=== PATIENT | female | born 1980 | race Caucasian/White ===

== ENCOUNTER 2020-03-25 22:16 | Emergency (ER) | payer OTHER, SELFPAY ==
--- NOTE | 2020-03-25 22:28 | ED.GENADULT ---
HPI - General Adult General Chief complaint: Urogenital-Female Stated complaint: CLOUDY URINE Time Seen by Provider: 03/25/20 22:26 Source: patient Mode of arrival: Ambulatory Limitations: no limitations History of Present Illness HPI narrative: Patient is a 39-year-old female here for evaluation of multiple symptoms. She states that she has dark cloudy urine which makes her think that she is dehydrated. She thinks that this is going to cause issues with her lithium level. 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 She is also complaining of vaginal discharge. She thinks this is either because she just changed her NuvaRing or because she changed her cat litter did not wash her hands before she went to bed thought that maybe she infected herself. She has no concern for sexually transmitted diseases. States the vaginal discharge is clear in nature. Related Data Allergies Allergy/AdvReac Type Severity Reaction Status Date / Time No Known Drug Allergies Allergy Verified 03/25/20 22:45 Review of Systems Constitutional Constitutional: Reports fatigue and Denies fever(s) Cardiovascular Cardiovascular: Denies chest pain and Denies dyspnea Respiratory Respiratory: Denies dyspnea Gastrointestinal Gastrointestinal: Reports abdominal pain (Lower abdomen), Denies nausea and Denies vomiting Genitourinary Genitourinary: Reports vaginal discharge Comments: Dark urine Musculoskeletal Musculoskeletal: Denies arthralgias and Denies myalgias Integumentary/Breasts Skin/Breast: Denies lesions and Denies rash Neurologic Neurologic: Denies behavioral changes Psychiatric Psychiatric: Denies behavioral changes Endocrine Endocrine: Reports fatigue Hematologic/Lymphatic Hematologic/Lymphatic: Denies easy bleeding and Denies easy bruising Allergic/Immunologic Allergic/Immunologic: Denies urticaria Patient History Surgical History No pertinent past surgical history Social History lives independently: Yes Exam Initial Vital Signs Initial Vital Signs: Vital Signs Temperature 97.8 F 03/25/20 22:35 Pulse Rate 107 H 03/25/20 22:35 Respiratory Rate 16 03/25/20 22:35 Blood Pressure 118/74 03/25/20 22:35 Pulse Oximetry 97 03/25/20 22:35 Const General: cooperative and comfortable Resp Effort & Inspection: normal respiratory effort Cardio Rate: regular rate External Female Exam: normal external appearance Speculum Exam - Vagina: normal appearance of the vagina, normal vaginal discharge and no lesions Skin Lesions: no lesions Rashes: no rashes Neuro General: patient alert and patient awake Extrem General: capillary refill normal Psych Appearance: grossly normal and well kempt Course Orders Ordered: ED Orders 03/25/20 22:52 Basic Metabolic Panel Stat Complete Blood Count AUTO DIFF Stat [place] Stat 03/26/20 00:04 ARNULFO Prep Stat Wet Prep Tric BV [place] Stat Discontinued Medications Influenza Virus Vaccine (Influenza Vaccine 0.5 Ml Syringe) 0.5 ml IM .ONCE ONE Stop: 03/25/20 22:39 Last Admin: 03/25/20 22:46 Dose: 0.5 ml Documented by: RUI Vital Signs Vital signs: Vital Signs - 8 hr 03/25/20 22:35 03/26/20 00:56 Temperature 97.8 F Pulse Rate 107 H 96 H Respiratory Rate 16 16 Blood Pressure 118/74 124/75 Pulse Oximetry 97 99 Medical Decision Making Lab Data Lab results reviewed: Yes I reviewed the patient's lab results. Result diagrams: 03/25/20 22:52 03/25/20 22:52 Labs: Lab Results 03/25/20 03/25/20 03/25/20 Range/Units 22:52 22:52 22:52 WBC 11.9 H (4.5-11.0) X10^3/uL RBC 4.39 (4.0-5.2) X10^6/uL Hgb 12.5 (12.0-16.0) g/dL Hct 38.3 (36-46) % MCV 87.3 (80-100) fL MCH 28.4 (26-34) PG MCHC 32.6 (30-36) % RDW 12.9 (11.6-14.8) % Plt Count 306 (150-400) X10^3/uL Neut % (Auto) 63.4 (50-75) % Lymph % (Auto) 26.0 (25-40) % [place] % (Auto) 7.2 (3-14) % Eos % (Auto) 2.8 (2-4) % Baso % (Auto) 0.6 (0-2) % Neut # (Auto) 7600 H (4167-9941) /uL Lymph # (Auto) 3100 (7421-4522) /uL [place] # (Auto) 900 (0-900) /uL Eos # (Auto) 300 (0-450) /uL Baso # (Auto) 100 (0-100) /uL Sodium 137 (137-145) mmol/L Potassium 3.7 (3.4-5.1) mmol/L Chloride 107 (98-107) mmol/L Carbon Dioxide 24 (22-32) mmol/L BUN 13 (7-17) mg/dL Creatinine 0.77 (0.52-1.04) mg/dL Estimated GFR > 60.0 (>60) mL/min BUN/Creatinine Ratio 16.9 (6-22) Glucose 122 H (70-100) mg/dL Calcium 9.4 (8.4-10.2) mg/dL [place] 0.6 (0.6-1.2) mmol/L Point of Care Testing Test Results Negative Urine Dip Bedside Urine Glucose Negative Bedside Urine Bilirubin - Negative Bedside Urine Ketone - Negative Urine Specific [place] 1.030 Bedside Urine Occult Blood - Negative Bedside Urine pH 6.0 Bedside Urine Protein - Negative Bedside Urine Urobilinogen - Negative Bedside Urine Nitrite - Negative Bedside Urine Leukocytes - Negative Esterase Point of care testing: Point of Care Testing Test Results Negative Urine Dip Bedside Urine Glucose Negative Bedside Urine Bilirubin - Negative Bedside Urine Ketone - Negative Urine Specific [place] 1.030 Bedside Urine Occult Blood - Negative Bedside Urine pH 6.0 Bedside Urine Protein - Negative Bedside Urine Urobilinogen - Negative Bedside Urine Nitrite - Negative Bedside Urine Leukocytes - Negative Esterase MDM Narrative Medical decision making narrative: Vaginal exam was performed with nursing bed sign. There is no signs of infection both in her urine or on the vaginal cultures. Her lithium level was at the lower limit of normal however it has been approximately 24 hours since she is taking her medication. Patient tolerating oral intake. Informed her that she needed to continue to drink fluids at home. No indication for antibiotics. No indication for further workup here in the ER. Discharge Plan Departure Patient Disposition: Home Clinical Impression: Vaginal discharge Instructions: DI for Vaginal Discharge Activity Restrictions/Additional Instructions: There were no signs of any infections on your labs today. There is also no indication of dehydration. Recommend that you take all of your medications as directed. Contact her primary provider for follow-up. Return to the emergency department for any new or worsening symptoms
[2020-03-25 22:35] VITALS: BP 118/74; PULSE 107; RESP 16; TEMP 36.6; O2SAT 97; BMI 34.7
[2020-03-25] MEDS: INFLUENZA VACCINE 0.5 ML SYRINGE IM (22:46)
[2020-03-25 23:04] LABS: Add Manual Diff / Slide Review NO; Basophils Absolute Auto 100 /uL (0-100); Basophils Percent Auto 0.6 % (0-2); Eosinophils Absolute Auto 300 /uL (0-450); Eosinophils Percent Auto 2.8 % (2-4); Hematocrit 38.3 % (36-46); Hemoglobin 12.5 g/dL (12.0-16.0); Lymphocytes Absolute Auto 3100 /uL (1100-4500); Mean Corpuscular HGB Conc 32.6 % (30-36); Mean Corpuscular Hemoglobin 28.4 PG (26-34); Mean Corpuscular Volume 87.3 fL (80-100); Monocytes Absolute Auto 900 /uL (0-900); Monocytes Percent Auto 7.2 % (3-14); Neutrophils Absolute Auto 7600 /uL (1500-7000); Neutrophils Percent Auto 63.4 % (50-75); Platelet Count 306 X10^3/uL (150-400); Red Blood Cell Count 4.39 X10^6/uL (4.0-5.2); Red Cell Distribution Width 12.9 % (11.6-14.8); White Blood Cell Count 11.9 X10^3/uL (4.5-11.0)
[2020-03-25 23:09] LABS: BUN Creatinine Ratio 16.9 (6-22); Blood Urea Nitrogen 13 mg/dL (7-17); Calcium 9.4 mg/dL (8.4-10.2); Carbon Dioxide 24 mmol/L (22-32); Chloride 107 mmol/L (98-107); Estimated Glomerular Filt Rate > 60.0 mL/min (>60); Glucose 122 mg/dL (70-100); HEMOLYSIS < 15 (0-50); Potassium 3.7 mmol/L (3.4-5.1); Sodium 137 mmol/L (137-145)
[2020-03-25 23:24] LABS: Lithium 0.6 mmol/L (0.6-1.2)
[2020-03-26 00:56] VITALS: BP 124/75; PULSE 96; RESP 16; O2SAT 99
== END 2020-03-26 00:56 | disposition home or self-care (01) ==
PROVIDERS: Emergency Provider Emergency Medicine
DX: N89.8 Other specified noninflammatory disorders of vagina (principal); R10.30 Lower abdominal pain, unspecified; Z23 Encounter for immunization
CPT/HCPCS: 36415; 80048; 80178; 81003; 81025; 85025; 87210; 87220; 90471; 90656; 99283; 99284; Q2038

== ENCOUNTER → 2021-06-07 11:42 | Outpatient (CLI) | payer OTHER, SELFPAY ==
[2021-06-07 15:23] LABS: Urine N gonorrhoeae NOT DETECTED
[2021-06-07 15:48] LABS: Urine Chlamydia NOT DETECTED
[2021-06-08 06:36] LABS: RPR Screen Non Reactive (Non Reactive)
[2021-06-08 11:41] LABS: HSV 2 IGG AB < 0.91 index (0.00-0.90); HSV1IGG < 0.91 index (0.00-0.90)
[2021-06-09 01:09] LABS: Hepatitis B Core AB w/Reflex Negative (Negative)
[2021-06-09 15:33] LABS: Hepatitis B Surface Antigen NEGATIVE s/c (NEGATIVE)
[2021-06-09 15:50] LABS: HIV 1 & 2 Ab/Ag 4th Gen Combo NEGATIVE (NEGATIVE); Hep C Virus Ab w/Reflex Quant NEGATIVE s/c (NEGATIVE)
== END ==
PROVIDERS: PCP Registered Nurse Diabetes Educator; Referring Provider Registered Nurse Diabetes Educator; Visit Provider Registered Nurse Diabetes Educator
DX: Z72.51 High risk heterosexual behavior (principal)
CPT/HCPCS: 36415; 86592; 86695; 86696; 86704; 86803; 87340; 87389; 87491; 87591

== ENCOUNTER → 2021-06-21 10:10 | Outpatient (CLI) | payer OTHER, SELFPAY ==
[2021-06-21 10:43] LABS: Hematocrit 38.5 % (36-46); Mean Corpuscular HGB Conc 33.8 % (30-36); Mean Corpuscular Hemoglobin 29.2 PG (26-34); Mean Corpuscular Volume 86.4 fL (80-100); Platelet Count 262 X10^3/uL (150-400); Red Blood Cell Count 4.45 X10^6/uL (4.0-5.2); Red Cell Distribution Width 13.3 % (11.6-14.8); White Blood Cell Count 9.8 X10^3/uL (4.5-11.0)
[2021-06-21 11:18] LABS: Alanine Aminotransferase 19 IU/L (<35); Albumin 4.1 g/dL (3.5-5.0); Albumin Globulin Ratio 1.5 (1.0-2.8); Alkaline Phosphatase 71 U/L (38-126); Aspartate Aminotransferase 19 IU/L (14-36); BUN Creatinine Ratio 15.2 (6-22); Bilirubin Total 0.3 mg/dL (0.2-1.3); Blood Urea Nitrogen 12 mg/dL (7-17); Calcium 9.5 mg/dL (8.4-10.2); Carbon Dioxide 20 mmol/L (22-32); Chloride 112 mmol/L (98-107); Cholesterol 212 mg/dL (140-199); Estimated Glomerular Filt Rate > 60.0 mL/min (>60); Globulin 2.7 g/dL (1.7-4.1); Glucose 103 mg/dL (70-100); HDL Cholesterol 70 mg/dL (40-60); HEMOLYSIS < 15 (0-50); LDL Cholesterol Calculated 93 mg/dL (<100); Potassium 4.2 mmol/L (3.4-5.1); Sodium 139 mmol/L (137-145); Total Protein 6.8 g/dL (6.3-8.2); Triglycerides 246 mg/dL (35-150)
[2021-06-21 12:17] LABS: TSH w/ Reflex to FT4 2.84 uIU/mL (0.47-4.68)
== END ==
PROVIDERS: PCP Registered Nurse Diabetes Educator; Referring Provider Registered Nurse Diabetes Educator; Visit Provider Registered Nurse Diabetes Educator
DX: R23.2 Flushing (principal); Z00.00 Encounter for general adult medical examination without abnormal findings; Z68.35 Body mass index [BMI] 35.0-35.9, adult
CPT/HCPCS: 36415; 80053; 80061; 84443; 85027

== ENCOUNTER → 2021-07-21 11:18 | Outpatient (CLI) | payer OTHER, SELFPAY ==
[2021-07-21 12:56] LABS: Lithium 0.9 mmol/L (0.6-1.2)
[2021-07-21 12:58] LABS: BUN Creatinine Ratio 10.7 (6-22); Blood Urea Nitrogen 9 mg/dL (7-17); Calcium 9.7 mg/dL (8.4-10.2); Carbon Dioxide 22 mmol/L (22-32); Chloride 107 mmol/L (98-107); Estimated Glomerular Filt Rate > 60.0 mL/min (>60); Glucose 93 mg/dL (70-100); HEMOLYSIS < 15 (0-50); Potassium 4.1 mmol/L (3.4-5.1); Sodium 138 mmol/L (137-145)
== END ==
PROVIDERS: PCP Registered Nurse Diabetes Educator; Referring Provider Psychiatry & Neurology Psychiatry; Visit Provider Psychiatry & Neurology Psychiatry
DX: G47.00 Insomnia, unspecified (principal); F31.9 Bipolar disorder, unspecified; F90.9 Attention-deficit hyperactivity disorder, unspecified type; F43.10 Post-traumatic stress disorder, unspecified; E78.5 Hyperlipidemia, unspecified
CPT/HCPCS: 36415; 80048; 80178

== ENCOUNTER → 2021-07-22 11:55 | Outpatient (CLI) | payer OTHER, SELFPAY ==
--- NOTE | 2021-07-22 11:57 | DI.RAD.S_ITS ---
PROCEDURE: XR BONE LENGTH SCANOGRAM INDICATIONS: eval for asymmetry; apparent leg length discrepancy TECHNIQUE: A single frontal standing view of both lower extremities acquired, with measuring ruler situated between the legs. COMPARISON: None. FINDINGS: Note is made of [id number] bilateral knee joint degeneration. Right: Total leg length is roughly 77 cm. Left: Total leg length is roughly 77 cm. IMPRESSION: Leg length roughly 77 cm bilaterally. Dictated by: Bravo Medina RR Interpreted: Darryl Crouch MD on 07/22/2021 at 16:29 Transcribed by: GLENNA on 07/22/2021 at 16:31 Approved by: Darryl Crouch M.D. on 07/22/2021 at 18:06
== END ==
PROVIDERS: PCP Registered Nurse Diabetes Educator; Referring Provider Registered Nurse Diabetes Educator; Visit Provider Registered Nurse Diabetes Educator
DX: M21.70 Unequal limb length (acquired), unspecified site (principal); M17.0 Bilateral primary osteoarthritis of knee
CPT/HCPCS: 77073

== ENCOUNTER → 2021-08-01 16:35 | Outpatient (CLI) | payer OTHER, SELFPAY ==
--- NOTE | 2021-08-01 16:36 | DI.RAD.S_ITS ---
PROCEDURE: XR HIP W PEL IF DONE KARMEN MIN 4V INDICATIONS: eval possible hip asymmetry TECHNIQUE: AP pelvis with lateral view(s) of the right and left hip(s). COMPARISON: None. FINDINGS: Bones: No fractures or dislocations. Pelvic ring appears intact. No suspicious bony lesions. Mild symmetric hip joint degeneration bilaterally. Soft tissues: The visualized bowel gas pattern is normal. No suspicious soft tissue calcifications. IMPRESSION: Mild symmetric degenerative joint disease. Dictated by: Darryl Crouch M.D. on 08/01/2021 at 17:06 Approved by: Darryl Crouch M.D. on 08/01/2021 at 17:07
== END ==
PROVIDERS: PCP Registered Nurse Diabetes Educator; Referring Provider Registered Nurse Diabetes Educator; Visit Provider Registered Nurse Diabetes Educator
DX: M16.0 Bilateral primary osteoarthritis of hip (principal); M21.70 Unequal limb length (acquired), unspecified site
CPT/HCPCS: 73522

== ENCOUNTER 2021-11-23 01:37 | Emergency (ER) | payer OTHER, SELFPAY ==
[2021-11-23 01:44] VITALS: O2SAT 97
[2021-11-23 01:45] VITALS: BP 118/78; PULSE 91; RESP 20; TEMP 36.9; O2SAT 97; BMI 34.5
--- NOTE | 2021-11-23 02:19 | ED_ITS ---
HPI - General Adult General Chief complaint: Urogenital-Female Stated complaint: Trichomoniasis/diarrhea/vag. discharge Time Seen by Provider: 11/23/21 02:06 Source: patient Mode of arrival: Ambulatory History of Present Illness HPI narrative: 41-year-old woman with history of bipolar disorder presents with vaginal discharge mild discomfort and concerns. She did have a partnered sexual encounter in July but used a condom has not had a partners since that time. Symptoms have been increasing over the last week or so. She is concerned that her irritable bowel syndrome causing increased diarrhea is part of the reason she is having vaginal symptoms. She noted that her Estring partially extruded and she simply replaced and is concerned that she introduced fecal contamination into her vagina. She is having minor lower abdominal cramping and minor dysuria. No gross hematuria. Is not complaining of fevers, flank pain, vomiting. Notes that she has recently been , moved to the [facility], settling into a new home, increasing stressors and increasing irritable bowel syndrome symptoms accordingly Related Data Home Medications Medication Instructions Recorded Confirmed acetaminophen [Tylenol] PO 09/17/20 08/05/21 aripiprazole 5 mg tablet (Abilify) 10 mg PO DAILY 09/17/20 08/05/21 cetirizine 10 mg capsule (All Day 10 mg PO DAILY PRN 09/17/20 08/05/21 Allergy (cetirizine)) etonogestrel 0.12 mg-ethinyl 1 vag ring vaginal Q4W 09/17/20 08/05/21 estradiol 0.015 mg/24 hr vaginal ring (EluRyng) lamotrigine 200 mg tablet 400 mg PO DAILY 09/17/20 08/05/21 lithium carbonate 600 mg capsule 1,200 mg PO BEDTIME 09/17/20 08/05/21 methylphenidate HCl 18 mg 18 mg PO DAILY 09/17/20 08/05/21 tablet,extended release 24 hr (Concerta) pntcyiwzgdjm-Gh-mohs-minerals 18 tab PO 09/17/20 08/05/21 mg-0.4 mg tablet (Maximum Daily Multivitamin) nortriptyline 10 mg capsule 10 mg PO TID 09/17/20 08/05/21 risperidone 0.5 mg tablet 0.5 mg PO BEDTIME 09/17/20 08/05/21 Previous Rx's Medication Instructions Recorded montelukast 10 mg tablet See Rx Instructions .Route 03/28/21 .COMPLEX #90 tabs zolmitriptan 5 mg tablet (Zomig) See Rx Instructions PO .COMPLEX 04/30/21 #30 tabs dicyclomine 20 mg tablet 20 mg PO QID PRN abdominal pain 05/28/21 #120 tabs metronidazole 0.75 % topical gel 1 applic topical BID Rosacea #45 11/04/21 grams rizatriptan 10 mg tablet 10 mg PO .COMPLEX PRN migraine 11/06/21 headache #30 tabs cephalexin 500 mg capsule 500 mg PO TID #15 caps 11/23/21 metronidazole 500 mg tablet 500 mg PO BID #14 tabs 11/23/21 Allergies Allergy/AdvReac Type Severity Reaction Status Date / Time No Known Drug Allergies Allergy Verified 08/05/21 08:44 Review of Systems Review of Systems Narrative: Remainder of complete review of systems is otherwise unremarkable except for that included in the HPI. Patient History Medical History Acquired short leg syndrome on left Acute right-sided thoracic back pain Bipolar disorder Chronic right-sided low back pain without sciatica Dyslipidemia IBS (irritable bowel syndrome) Lumbar region somatic dysfunction Migraines Osteopenia Pelvic somatic dysfunction Sacral region somatic dysfunction Segmental and somatic dysfunction of abdomen and other regions Somatic dysfunction of lower extremity Thoracic region somatic dysfunction Urinary Incontinence Surgical History No pertinent past surgical history Social History lives independently: Yes Smoking Status: Never smoker Smoking Status: Never smoker Substance Use Type: does not use Exam Initial Vital Signs Initial Vital Signs: Vital Signs Temperature 98.4 F 11/23/21 01:45 Pulse Rate 91 H 11/23/21 01:45 Respiratory Rate 20 11/23/21 01:45 Blood Pressure 118/78 11/23/21 01:45 Pulse Oximetry 97 11/23/21 01:45 Oxygen Delivery Method 11/23/21 01:45 General: Alert appropriate in no acute distress Respiratory: Able to speak in full sentences, no obvious respiratory distress Abdomen: Mild suprapubic tenderness, no flank pain no rebound or guarding Skin: No obvious rashes, warm and dry Neurologic: Grossly intact no obvious asymmetries or abnormalities Psych: appropriate insight and affect, cooperative Pelvic exam: Or mildly excoriated vaginal mucosa with thin white vaginal discharge that does not have a significant odor. Cervix covered with discharge but cervical mucosal air is unremarkable. She has no cervical motion tenderne ss. Course Orders Ordered: ED Orders 11/23/21 02:20 Chlamydia Gonorrhea PCR -URINE Stat UA dip and micro [Urinalysis and Microscopic] Stat Urine Culture Stat 11/23/21 02:40 Wet Prep Tric BV [place] Stat Vital Signs Vital signs: Vital Signs - 8 hr 11/23/21 01:45 Temperature 98.4 F Pulse Rate 91 H Respiratory Rate 20 Blood Pressure 118/78 Pulse Oximetry 97 Oxygen Delivery Method Room Air Medical Decision Making Lab Data Labs: Lab Results 11/23/21 Range/Units 02:20 Urine Color Yellow Urine Appearance Clear Urine pH 7.0 (4.5-8.0) Ur Specific [place] 1.015 (1.000-1.035) Urine Protein Negative (Negative) Urine Glucose (UA) Negative (Negative) g/dL Urine Ketones Negative (NEGATIVE) Urine Occult Blood Negative (Negative) Urine Nitrate Negative (Negative) Urine Bilirubin Negative (NEGATIVE) Urine Urobilinogen 0.2 (0.2) E.U./dL Ur Leukocyte Esterase Trace H (NEGATIVE) Urine RBC None seen (0-5/HPF) Urine WBC None seen (0-5/HPF) Urine Bacteria None seen (None) Ur Culture Indicated? Specimen cultured MDM Narrative Medical decision making narrative: 41-year-old woman with 1 week of increasing vaginal discharge minor irritation cramping and mild dysuria. Wet mount suggests that she has bacterial vaginosis in urinalysis rinse suggests developing UTI. Urine sample was also sent for gonorrhea and chlamydia. A suspicion for sexually transmitted infection is low. Will treat her with 1 week of metronidazole 500 mg b.i.d. and 5 days of Keflex t.i.d.. She is on high doses of lithium and there is a potential side effect with lithium and metronidazole of which she is cautioned. She has had lithium toxicity and is aware of symptoms to watch for. Should she develop those symptoms I suggested she discontinue the metronidazole. There is no evidence of vaginal yeast nor pelvic inflammatory disease. All questions are answered and she is safe for home discharge Discharge Plan Departure Patient Disposition: Home Clinical Impression: Bacterial vaginal infection UTI (urinary tract infection) Qualifiers: Urinary tract infection type: acute cystitis Hematuria presence: without hematuria Qualified Code(s): N30.00 - Acute cystitis without hematuria Instructions: DI for Urinary Tract Infection (UTI), DI for Bacterial Vaginosis Activity Restrictions/Additional Instructions: Thank you for coming in today You have bacterial vaginosis as well as a bladder infection. I did check for both gonorrhea and chlamydia and should that test returned positive we will give you a call to let you know which antibiotics will be required. In the meantime, I am going to put you on metronidazole 500 mg twice a day for 7 days for the bacterial vaginosis. For the urinary tract infection I am going to give you Keflex 500 mg 3 times a day for 5 days. [place] and metronidazole taken together for extended period of time can interact and cause lithium toxicity. I believe that only 7 days and fairly low dose of metronidazole are safe but I do want you to be aware of the potential interaction. If you are noticing any signs of lithium toxicity(tremor, agitation increased anxiety sleeplessness) please stop the metronidazole. Prescriptions have been electronically transmitted to [facility]. If you find that you have worsening symptoms, new findings or additional concerns please feel free to return to the emergency department Prescriptions: New metronidazole 500 mg tablet 500 mg PO BID Qty: 14 0RF cephalexin 500 mg capsule 500 mg PO TID Qty: 15 0RF No Action montelukast 10 mg tablet See Rx Instructions .ROUTE .COMPLEX Qty: 90 3RF Dose Instruction: Take 1 tablet (10 mg) by mouth daily Rx Instructions: Take 1 tablet (10 mg) by mouth daily zolmitriptan [Zomig] 5 mg tablet See Rx Instructions PO .COMPLEX Qty: 30 3RF Rx Instructions: take 1 tab at onset of headache; if no relief, may repeat 1 tab after at least 2 hrs; max = 2 tabs/24 hrs PO metronidazole 0.75 % gel 1 applic topical BID Qty: 45 1RF Rx Instructions: Apply a thin film twice daily (AM and PM) to affected areas after washing. rizatriptan 10 mg tablet 10 mg PO .COMPLEX MDD 3 PRN (Reason: migraine headache) Qty: 30 0RF Rx Instructions: take 1 tab at onset of headache; if no relief may repeat 1 tab after at least 2 hrs; max = 3 tabs/24 hr PO 10 mg PRN aripiprazole [Abilify] 5 mg tablet 10 mg PO DAILY nortriptyline 10 mg capsule 10 mg PO TID methylphenidate HCl [Concerta] 18 mg tablet extended release 24hr 18 mg PO DAILY lithium carbonate 600 mg capsule 1,200 mg PO BEDTIME risperidone 0.5 mg tablet 0.5 mg PO BEDTIME lamotrigine 200 mg tablet 400 mg PO DAILY etonogestrel-ethinyl estradiol [EluRyng] 0.12-0.015 mg/24 hr ring 1 vag ring vaginal Q4W Rx Instructions: leave in place for 3 weeks of a 4-week cycle acetaminophen PO Maximum Daily Multivitamin 18-0.4 mg tablet PO All Day Allergy (cetirizine) 10 mg capsule 10 mg PO DAILY PRN dicyclomine 20 mg tablet 20 mg PO QID PRN (Reason: abdominal pain) Qty: 120 4RF Referrals: Obinna Garza ARNP [Primary Care Provider] - Stand Alone Forms: Work Release Note
[2021-11-23 03:14] LABS: Appearance Urine UA CLEAR; Bilirubin Urine UA NEGATIVE (NEGATIVE); Color Urine UA YELLOW; Glucose Urine UA NEGATIVE (Negative); Ketones Urine UA NEGATIVE (NEGATIVE); Leukocyte Esterase Urine UA TRACE (NEGATIVE); Nitrite Urine UA NEGATIVE (Negative); Occult Blood Urine UA NEGATIVE (Negative); Protein Urine UA NEGATIVE (Negative); Specific Gravity Urine UA 1.015 (1.000-1.035); Urobilinogen Urine UA 0.2 E.U./dL (0.2)
[2021-11-23 03:38] LABS: Bacteria Urine None Seen; Culture Indicated Urine Specimen Cultured; RBC Urine None Seen (0-5/HPF); WBC Urine None Seen (0-5/HPF)
[2021-11-23] MEDS: metroNIDAZOLE 500 MG TABLET PO (03:49)
[2021-11-23] MEDS: cephALEXin 250 MG CAPSULE 500 MG PO (03:49)
[2021-11-23 03:58] VITALS: O2SAT 96
[2021-11-23 03:59] VITALS: BP 134/65; PULSE 92; O2SAT 95
[2021-11-23 04:00] VITALS: PULSE 94; RESP 20; O2SAT 96
[2021-11-23 04:43] LABS: Urine N gonorrhoeae NOT DETECTED
[2021-11-23 04:50] LABS: Urine Chlamydia NOT DETECTED
== END 2021-11-23 04:05 | disposition home or self-care (01) ==
PROVIDERS: Emergency Provider Emergency Medicine; Family Provider Registered Nurse Diabetes Educator; PCP Registered Nurse Diabetes Educator
DX: N76.0 Acute vaginitis (principal); N30.00 Acute cystitis without hematuria
CPT/HCPCS: 81001; 87086; 87210; 87491; 87591; 99283

== ENCOUNTER 2021-11-27 22:54 | Emergency (ER) | payer OTHER, SELFPAY ==
[2021-11-27 23:01] VITALS: BP 145/78; PULSE 104; RESP 18; TEMP 36.1; O2SAT 98
[2021-11-27 23:46] LABS: Bacteria Urine Few (2-10); Culture Indicated Urine Specimen Cultured; RBC Urine None Seen (0-5/HPF); Squamous Epithelial Cell Urine 0-1 /HPF (0-5/HPF); WBC Urine 1-5/HPF (0-5/HPF)
--- NOTE | 2021-11-28 00:24 | ED.FEMALEGU ---
HPI - Female Genitourinary General Chief complaint: Urogenital-Female Stated complaint: urinary infection Time Seen by Provider: 11/28/21 00:13 Source: patient Mode of arrival: Ambulatory Limitations: no limitations History of Present Illness HPI Narrative: This is a 41-year-old female with history of bipolar disorder and IBS who presents with concern that her bladder infection or vaginal infection has not resolved. She is been on Keflex t.i.d. for UTI as well as Flagyl for bacterial vaginosis she was seen on the 23 of November starting these medications. She denies fevers or chills. She is had a little bit of suprapubic discomfort. She states she is not having as much frequency she does have a sensation of dysuria but states seems a little bit more internal than it did earlier, she does not have a sense of incomplete emptying. She states she has noticed some vaginal irritation and itching which is different. Patient states she is had some diarrhea but states this is her normal from IBS. No black or blood in her stools. Patient states she is had abdominal discomfort consistent with her usual IBS. She has had some changes to her long-acting methylphenidate and it has been increased to 27 mg daily and she is not been taking her Concerta as secondary to this. She did note the lithium in combination with the metronidazole did seem to make her sleepy so she is been taking her lithium 6 hours before she is due for her metronidazole. Patient states she has had yeast infections remotely she is unsure if this is the same thing. Related Data Home Medications Medication Instructions Recorded Confirmed acetaminophen [Tylenol] PO 09/17/20 08/05/21 aripiprazole 5 mg tablet (Abilify) 10 mg PO DAILY 09/17/20 08/05/21 cetirizine 10 mg capsule (All Day 10 mg PO DAILY PRN 09/17/20 08/05/21 Allergy (cetirizine)) etonogestrel 0.12 mg-ethinyl 1 vag ring vaginal Q4W 09/17/20 08/05/21 estradiol 0.015 mg/24 hr vaginal ring (EluRyng) lamotrigine 200 mg tablet 400 mg PO DAILY 09/17/20 08/05/21 lithium carbonate 600 mg capsule 1,200 mg PO BEDTIME 09/17/20 08/05/21 methylphenidate HCl 18 mg 18 mg PO DAILY 09/17/20 08/05/21 tablet,extended release 24 hr (Concerta) gyxgqsvqtyrw-Jj-yljo-minerals 18 tab PO 09/17/20 08/05/21 mg-0.4 mg tablet (Maximum Daily Multivitamin) nortriptyline 10 mg capsule 10 mg PO TID 09/17/20 08/05/21 risperidone 0.5 mg tablet 0.5 mg PO BEDTIME 09/17/20 08/05/21 Previous Rx's Medication Instructions Recorded montelukast 10 mg tablet See Rx Instructions .Route 03/28/21 .COMPLEX #90 tabs zolmitriptan 5 mg tablet (Zomig) See Rx Instructions PO .COMPLEX 04/30/21 #30 tabs dicyclomine 20 mg tablet 20 mg PO QID PRN abdominal pain 05/28/21 #120 tabs metronidazole 0.75 % topical gel 1 applic topical BID Rosacea #45 11/04/21 grams rizatriptan 10 mg tablet 10 mg PO .COMPLEX PRN migraine 11/06/21 headache #30 tabs cephalexin 500 mg capsule 500 mg PO TID #15 caps 11/23/21 metronidazole 500 mg tablet 500 mg PO BID #14 tabs 11/23/21 etonogestrel 0.12 mg-ethinyl 1 vag ring vaginal Q3W #3 ea 11/28/21 estradiol 0.015 mg/24 hr vaginal ring (NuvaRing) etonogestrel 0.12 mg-ethinyl 1 vag ring vaginal Q3W #3 ea 11/28/21 estradiol 0.015 mg/24 hr vaginal ring (NuvaRing) fluconazole 150 mg tablet 150 mg PO Q3D 2 doses #2 tabs 11/28/21 (Diflucan) fluconazole 150 mg tablet 150 mg PO Q3D 2 doses #2 tabs 11/28/21 (Diflucan) Allergies Allergy/AdvReac Type Severity Reaction Status Date / Time No Known Drug Allergies Allergy Verified 08/05/21 08:44 Review of Systems Review of Systems ROS Unobtainable: All systems reviewed & are unremarkable except as noted in HPI and below Patient History Medical History Acquired short leg syndrome on left Acute right-sided thoracic back pain Bipolar disorder Chronic right-sided low back pain without sciatica Dyslipidemia IBS (irritable bowel syndrome) Lumbar region somatic dysfunction Migraines Osteopenia Pelvic somatic dysfunction Sacral region somatic dysfunction Segmental and somatic dysfunction of abdomen and other regions Somatic dysfunction of lower extremity Thoracic region somatic dysfunction Urinary Incontinence Surgical History No pertinent past surgical history Substance Use Type: does not use Exam Narrative Exam Narrative: GENERAL: Alert and oriented x three, mild distress. HEENT: Head normocephalic, atraumatic, EOMI, pupils reactive, face symmetric, moist mucous membranes NECK: Supple, full range of motion CARDIOVASCULAR: Regular rate and rhythm without murmurs, rubs or gallops. RESPIRATORY: Breath sounds equal bilaterally, no wheezes rales or rhonchi. ABDOMEN: Soft, nontender. Normoactive bowel sounds all 4 quadrants. No guarding or rebound, rigidity, no mass : No CVA tenderness. Female: external vaginal exam is normal except for some slight erythema of the inner labia minora, no vaginal bleeding, patient has mild white discharge, internal vaginal canal does have some patchy erythema, no cervical motion tenderness, normal speculum exam, no adnexal tenderness/mass. Bimanual exam is normal, no enlarged or tender uterus. Non-gravid. EXTREMITIES: Normal range of motion, no clubbing or edema. Neurovascularly intact NEUROLOGICAL: Cranial nerves II through XII grossly intact. Moving all extremities SKIN: Warm, dry, no petechiae, no rashes or lesions. Initial Vital Signs Initial Vital Signs: Vital Signs Temperature 97 F L 11/27/21 23:01 Pulse Rate 104 H 11/27/21 23:01 Respiratory Rate 18 11/27/21 23:01 Blood Pressure 145/78 H 11/27/21 23:01 Pulse Oximetry 98 11/27/21 23:01 Oxygen Delivery Method 11/27/21 23:01 Course Orders Ordered: ED Orders 11/27/21 23:20 Urine Culture Stat Urine Microscopic Stat 11/28/21 00:50 Chlamydia/Gonoc/Myco Genital Stat Genital Culture Stat Vital Signs Vital signs: Vital Signs - 8 hr 11/27/21 23:01 11/28/21 01:25 Temperature 97 F L Pulse Rate 104 H 96 H Respiratory Rate 18 18 Blood Pressure 145/78 H 140/79 Pulse Oximetry 98 98 Oxygen Delivery Method Room Air Room Air MDM - Female Genitourinary Lab Data Labs: Lab Results 11/27/21 Range/Units 23:20 Urine RBC None seen (0-5/HPF) Urine WBC 1-5/hpf (0-5/HPF) Ur Squamous Epith Cells 0-1 /hpf (0-5/HPF) Urine Bacteria Few (2-10) H (None) Ur Culture Indicated? Specimen cultured Point of Care Testing Test Results Negative Urine Dip Bedside Urine Glucose Negative Bedside Urine Bilirubin - Negative Bedside Urine Ketone - Negative Urine Specific [place] 1.015 Bedside Urine Occult Blood - Negative Bedside Urine pH 6.0 Bedside Urine Protein - Negative Bedside Urine Urobilinogen - Negative Bedside Urine Nitrite - Negative Bedside Urine Leukocytes + 70 Esterase MDM Narrative Medical decision making narrative: This is a 41-year-old female who comes with sensation of dysuria and vaginal irritation she is been on Flagyl and Keflex for BV as well as UTI. Her prior urine culture is negative, UA today does not show obvious signs of infection but was sent for urine culture again. Wet prep was suspicious for possible BV with clue cells on 11/23. Patient had genital culture, GC swab and wet prep sent. Patient's exam appears somewhat consistent with yeast infection as well. Patient encouraged to continue her Flagyl and prescription for Diflucan given. Patient did request refill of her NuvaRing as it is written as every 4 weeks but she uses it every 3 weeks. Discharge Plan Departure Patient Disposition: Home Clinical Impression: Candidiasis of vagina Instructions: DI for Vaginal Yeast Infection Activity Restrictions/Additional Instructions: Your urine culture is pending. This can take 48-72 hours to result. If grows bacteria or shows any signs of resistance we will call you. It if it is negative we do not typically call but you are welcome to call at any time to recheck your results. A prescription for Nuvaring was sent. Take Diflucan 1 tablet than wait 2 days and take the additional tablet. If you are having significant irritation you can use Monistat [id number] intravaginally. Prescription sent to [facility] in [place]. Your additional cultures have been sent. These also take several days to result. If positive we will contact you. If negative we typically do not contact but you can call to follow up these results or view them in the patient portal. Please return for fevers, worsening abdominal or pelvic pain, persistent vomiting, black or bloody stools or other new or concerning symptoms. Prescriptions: New fluconazole [Diflucan] 150 mg tablet 150 mg PO Q3D Qty: 2 0RF Rx Instructions: may repeat second dose 72 hrs after first dose if symptoms persist etonogestrel-ethinyl estradiol [NuvaRing] 0.12-0.015 mg/24 hr ring 1 vag ring vaginal Q3W Qty: 3 5RF Rx Instructions: leave in place for 3 weeks of a 4-week cycle fluconazole [Diflucan] 150 mg tablet 150 mg PO Q3D Qty: 2 0RF Rx Instructions: may repeat second dose 72 hrs after first dose if symptoms persist etonogestrel-ethinyl estradiol [NuvaRing] 0.12-0.015 mg/24 hr ring 1 vag ring vaginal Q3W Qty: 3 12RF Rx Instructions: leave in place for 3 weeks of a 4-week cycle No Action montelukast 10 mg tablet See Rx Instructions .ROUTE .COMPLEX Qty: 90 3RF Dose Instruction: Take 1 tablet (10 mg) by mouth daily Rx Instructions: Take 1 tablet (10 mg) by mouth daily zolmitriptan [Zomig] 5 mg tablet See Rx Instructions PO .COMPLEX Qty: 30 3RF Rx Instructions: take 1 tab at onset of headache; if no relief, may repeat 1 tab after at least 2 hrs; max = 2 tabs/24 hrs PO metronidazole 0.75 % gel 1 applic topical BID Qty: 45 1RF Rx Instructions: Apply a thin film twice daily (AM and PM) to affected areas after washing. rizatriptan 10 mg tablet 10 mg PO .COMPLEX MDD 3 PRN (Reason: migraine headache) Qty: 30 0RF Rx Instructions: take 1 tab at onset of headache; if no relief may repeat 1 tab after at least 2 hrs; max = 3 tabs/24 hr PO 10 mg PRN aripiprazole [Abilify] 5 mg tablet 10 mg PO DAILY nortriptyline 10 mg capsule 10 mg PO TID methylphenidate HCl [Concerta] 18 mg tablet extended release 24hr 18 mg PO DAILY lithium carbonate 600 mg capsule 1,200 mg PO BEDTIME risperidone 0.5 mg tablet 0.5 mg PO BEDTIME lamotrigine 200 mg tablet 400 mg PO DAILY etonogestrel-ethinyl estradiol [EluRyng] 0.12-0.015 mg/24 hr ring 1 vag ring vaginal Q4W Rx Instructions: leave in place for 3 weeks of a 4-week cycle acetaminophen PO Maximum Daily Multivitamin 18-0.4 mg tablet PO All Day Allergy (cetirizine) 10 mg capsule 10 mg PO DAILY PRN dicyclomine 20 mg tablet 20 mg PO QID PRN (Reason: abdominal pain) Qty: 120 4RF metronidazole 500 mg tablet 500 mg PO BID Qty: 14 0RF cephalexin 500 mg capsule 500 mg PO TID Qty: 15 0RF Referrals: Obinna Garza ARNP [Primary Care Provider] - Visit Report Forms: Patient Portal/API
[2021-11-28 01:25] VITALS: BP 140/79; PULSE 96; RESP 18; O2SAT 98
[2021-12-02 14:12] LABS: Chlamydia trachomatis Negative (Negative); Mycoplasma genitalium Negative (Negative); Neisseria gonorrhoeae Negative (Negative)
== END 2021-11-28 01:26 | disposition home or self-care (01) ==
PROVIDERS: Emergency Provider Emergency Medicine; Family Provider Registered Nurse Diabetes Educator; PCP Registered Nurse Diabetes Educator
DX: B37.3 Candidiasis of vulva and vagina (principal)
CPT/HCPCS: 81003; 81015; 81025; 87070; 87086; 87205; 87491; 87563; 87591; 99282

== ENCOUNTER → 2021-12-08 12:40 | Outpatient (CLI) | payer OTHER, SELFPAY | PROVIDERS: Family Provider Registered Nurse Diabetes Educator; PCP Registered Nurse Diabetes Educator; Visit Provider Registered Nurse Diabetes Educator | DX: N89.8 Other specified noninflammatory disorders of vagina (principal) | CPT/HCPCS: 87210; 87220 ==

== ENCOUNTER → 2022-01-24 08:50 | Outpatient (CLI) | payer OTHER, SELFPAY ==
--- NOTE | 2022-01-24 08:53 | DI.MG.S_ITS ---
BILATERAL DIGITAL SCREENING MAMMOGRAM 3D/2D WITH CAD: 01/24/2022 CLINICAL: Baseline exam. Routine screening. Family history of breast cancer. No prior exams were available for comparison. There are scattered areas of fibroglandular density in both breasts (category b / 25%-50% glandular tissue). Current study was also evaluated with a Computer Aided Detection (CAD) system. No significant masses, calcifications, or other findings are seen in either breast. IMPRESSION: NEGATIVE There is no mammographic evidence of malignancy. A 1 year screening mammogram is recommended. Based on the Tyrer Cuzick model (a risk assessment model) the patient's lifetime risk is 10.3% and her 10 year risk is 1.4%. According to the ACR, ACS, and NCCN guidelines, an annual breast MRI exam along with mammogram is recommended if the patient's lifetime risk is 20% or greater. This exam was interpreted at Station ID: [id number]. NOTE: For mammograms, a report in lay terms will be sent to the patient. Approximately 15% of breast malignancies will not be visualized mammographically. In the management of a palpable breast mass, a negative mammogram must not discourage biopsy of a clinically suspicious lesion. Electronically Signed By: Aryan shabazz/isaias:01/26/2022 11:09:45 letter sent: Normal Exam ACR BI-RADS Category 1: Negative 3341F
== END ==
PROVIDERS: Family Provider Registered Nurse Diabetes Educator; PCP Registered Nurse Diabetes Educator; Referring Provider Registered Nurse Diabetes Educator; Visit Provider Registered Nurse Diabetes Educator
DX: Z12.31 Encounter for screening mammogram for malignant neoplasm of breast (principal); Z80.3 Family history of malignant neoplasm of breast
CPT/HCPCS: 77063; 77067

== ENCOUNTER → 2022-05-14 09:47 | Outpatient (CLI) | payer OTHER, SELFPAY ==
--- NOTE | 2022-05-20 08:52 | PM.PFT.1 ---
Pulmonary Function Test Referral & Results Date Patient Seen: 05/14/22 Requesting provider: Obinna Garza Results: The spirometry demonstrates an FVC of 2.83 L which is 82% of predicted. The FEV1 was measured at 2.47 L which is 88% of predicted. The FEV1/FVC ratio was 87 which is 106% of predicted. Following the administration of bronchodilator there was no notable change. Lung volumes show an SVC of 3.08 L which is 95% of predicted. The diffusing capacity was measured at 20.72 which is 96% of predicted. The maximum voluntary ventilation was normal Interpretation: This study demonstrates normal pulmonary function
== END ==
PROVIDERS: Family Provider Registered Nurse Diabetes Educator; PCP Registered Nurse Diabetes Educator; Referring Provider Registered Nurse Diabetes Educator; Visit Provider Registered Nurse Diabetes Educator
DX: J45.990 Exercise induced bronchospasm (principal)
CPT/HCPCS: 94060; 94726; 94729

== ENCOUNTER → 2022-06-11 10:15 | Outpatient (CLI) | payer OTHER, SELFPAY ==
[2022-06-11 11:49] LABS: Alanine Aminotransferase 84 IU/L (<35); Albumin 4.7 g/dL (3.5-5.0); Albumin Globulin Ratio 1.5 (1.0-2.8); Alkaline Phosphatase 86 U/L (38-126); Aspartate Aminotransferase 42 IU/L (14-36); BUN Creatinine Ratio 15.1 (6-22); Bilirubin Total 0.2 mg/dL (0.2-1.3); Blood Urea Nitrogen 11 mg/dL (7-17); Calcium 9.8 mg/dL (8.4-10.2); Carbon Dioxide 25 mmol/L (22-32); Chloride 104 mmol/L (98-107); Cholesterol 211 mg/dL (140-199); Estimated Glomerular Filt Rate > 60 mL/min (>60); Globulin 3.1 g/dL (1.7-4.1); Glucose 98 mg/dL (70-100); HDL Cholesterol 48 mg/dL (40-60); HEMOLYSIS < 15 (0-50); LDL Cholesterol Calculated 108 mg/dL (<100); Potassium 4.2 mmol/L (3.4-5.1); Sodium 138 mmol/L (137-145); Total Protein 7.8 g/dL (6.3-8.2); Triglycerides 275 mg/dL (35-150)
[2022-06-11 11:50] LABS: Add Manual Diff / Slide Review NO; Basophils Absolute Auto 100 /uL (0-100); Basophils Percent Auto 0.9 % (0-2); Eosinophils Absolute Auto 200 /uL (0-450); Eosinophils Percent Auto 2.5 % (2-4); Hematocrit 38.5 % (36-46); Hemoglobin 13.2 g/dL (12.0-16.0); Lymphocytes Absolute Auto 2500 /uL (1100-4500); Lymphocytes Percent Auto 26.5 % (25-40); Mean Corpuscular HGB Conc 34.3 % (30-36); Mean Corpuscular Hemoglobin 29.6 PG (26-34); Mean Corpuscular Volume 86.2 fL (80-100); Monocytes Absolute Auto 600 /uL (0-900); Monocytes Percent Auto 6.5 % (3-14); Neutrophils Absolute Auto 5900 /uL (1500-7000); Neutrophils Percent Auto 63.6 % (50-75); Platelet Count 250 X10^3/uL (150-400); Red Blood Cell Count 4.46 X10^6/uL (4.0-5.2); Red Cell Distribution Width 13.3 % (11.6-14.8); White Blood Cell Count 9.3 X10^3/uL (4.5-11.0)
[2022-06-11 12:06] LABS: Lithium 1.4 mmol/L (0.6-1.2)
[2022-06-11 12:21] LABS: Follicle Stimulating Hormone 6.81 mIU/mL
[2022-06-11 12:36] LABS: Thyroid Stimulating Hormone 1.81 uIU/mL (0.47-4.68)
== END ==
PROVIDERS: Family Provider Registered Nurse Diabetes Educator; PCP Registered Nurse Diabetes Educator; Referring Provider Psychiatry & Neurology Psychiatry; Visit Provider Psychiatry & Neurology Psychiatry
DX: F31.9 Bipolar disorder, unspecified (principal); F43.10 Post-traumatic stress disorder, unspecified; F90.9 Attention-deficit hyperactivity disorder, unspecified type; G47.00 Insomnia, unspecified; N95.9 Unspecified menopausal and perimenopausal disorder
CPT/HCPCS: 36415; 80053; 80061; 80175; 80178; 83001; 84443; 85025

== ENCOUNTER → 2022-06-16 07:14 | Outpatient (CLI) | payer OTHER, SELFPAY | PROVIDERS: Family Provider Registered Nurse Diabetes Educator; PCP Registered Nurse Diabetes Educator; Referring Provider Psychiatry & Neurology Psychiatry; Visit Provider Psychiatry & Neurology Psychiatry | DX: F31.9 Bipolar disorder, unspecified (principal); F43.10 Post-traumatic stress disorder, unspecified; F90.9 Attention-deficit hyperactivity disorder, unspecified type; G47.00 Insomnia, unspecified | CPT/HCPCS: 36415; 80178 ==

== ENCOUNTER 2022-06-16 07:28 | Emergency (ER) | payer OTHER, SELFPAY ==
[2022-06-16 08:26] VITALS: BP 158/72; PULSE 114; RESP 18; TEMP 36.6; O2SAT 97; BMI 36.2
--- NOTE | 2022-06-16 08:50 | ED.RECABL ---
HPI - Recheck/Abnormal Lab/Rx General Chief Complaint: Recheck/Abnormal Lab/Rx Stated Complaint: potential lithium toxicity T-4/ maigraine Time Seen by Provider: 06/16/22 08:25 Source: patient Mode of arrival: Ambulatory History of Present Illness HPI narrative: Patient here for evaluation of migraine headache and laboratory studies. Primary care sent here for outpatient lithium levels. Blood was drawn with outpatient lab this morning. Gilead levels are pending. Patient states she was placed on current dose of lithium back in 2019 and has been doing very well. She missed her checkup for lithium levels due to work load and work hours and schedule. Denies any nausea or vomiting. No confusion no double vision. No urinary complaints or changes. Has been keeping well hydrated. No recent illness. Patient states her headaches were evaluated by Neurology 12 years ago but has not seen a neurologist since then. She is followed by her primary care for her migraine medications. She states her primary care is giving a referral for Neurology evaluation given her migraine medications and lithium that is provided by her psychiatrist. Patient in no distress. Her migraine headache is almost daily. It does interfere with her work schedule. However she states she works 12 hours a day 5 days a week. She also cares for her father that has stage IV lung cancer. She states she has very little time for herself. She states her migraine headache is the same pattern intensity and location as previous headaches Related Data Home Medications Medication Instructions Recorded Confirmed acetaminophen [Tylenol] PO 09/17/20 12/08/21 aripiprazole 5 mg tablet (Abilify) 10 mg PO DAILY 09/17/20 12/08/21 lamotrigine 200 mg tablet 400 mg PO DAILY 09/17/20 12/08/21 lithium carbonate 600 mg capsule 1,200 mg PO BEDTIME 09/17/20 12/08/21 ecasoauuveuh-Db-mfha-minerals 18 tab PO 09/17/20 12/08/21 mg-0.4 mg tablet (Maximum Daily Multivitamin) methylphenidate HCl 27 mg 27 mg PO DAILY 12/08/21 12/08/21 tablet,extended release 24 hr methylphenidate HCl 5 mg tablet 5 mg PO DAILY PRN 12/08/21 12/08/21 nortriptyline 25 mg capsule 25 mg PO DAILY 12/08/21 12/08/21 risperidone 2 mg tablet 6 mg PO DAILY 12/08/21 12/08/21 Previous Rx's Medication Instructions Recorded zolmitriptan 5 mg tablet (Zomig) See Rx Instructions PO .COMPLEX 04/30/21 #30 tabs dicyclomine 20 mg tablet 20 mg PO QID PRN abdominal pain 05/28/21 #120 tabs metronidazole 500 mg tablet 500 mg PO BID #14 tabs 11/23/21 fluconazole 150 mg tablet 150 mg PO Q3D 2 doses #2 tabs 11/28/21 (Diflucan) etonogestrel 0.12 mg-ethinyl 1 vag ring vaginal Q3W #3 ea 12/08/21 estradiol 0.015 mg/24 hr vaginal ring (NuvaRing) fluconazole 150 mg tablet 150 mg PO Q3D 2 doses #2 tabs 12/12/21 (Diflucan) metronidazole 0.75 % topical gel 1 applic topical BID Rosacea #45 04/08/22 grams rizatriptan 10 mg tablet 10 mg PO .COMPLEX PRN migraine 04/08/22 headache #30 tabs albuterol sulfate 90 mcg/actuation 2 puff inhalation Q4-6H PRN 04/29/22 aerosol inhaler shortness of breath or wheezing #8.5 grams Allergies Allergy/AdvReac Type Severity Reaction Status Date / Time No Known Drug Allergies Allergy Verified 12/08/21 11:09 Review of Systems Review of Systems Narrative: GENERAL: negative chills, fatigue, malaise, fever, sweats. HEENT: negative sinus pain, ear pain, sore throat RESPIRATORY: negative dyspnea, cough CARDIOVASCULAR: negative chest pain, palpitations GASTROINTESTINAL: negative nausea, vomiting, abdominal pain : negative dysuria, frequency, hematuria MUSCULOSKELETAL: negative muscle or bony pain SKIN: negative rash, skin lesions NEUROLOGIC: negative weakness, numbness, positive headache ROS Unobtainable: All systems reviewed & are unremarkable except as noted in HPI and below Patient History Medical History Acquired short leg syndrome on left Acute right-sided thoracic back pain Bipolar disorder Chronic right-sided low back pain without sciatica Dyslipidemia Exercise-induced asthma IBS (irritable bowel syndrome) Lumbar region somatic dysfunction Migraine with aura, not intractable, without status migrainosus Migraines Osteopenia Pelvic somatic dysfunction Sacral region somatic dysfunction Segmental and somatic dysfunction of abdomen and other regions Somatic dysfunction of lower extremity Thoracic region somatic dysfunction Urinary Incontinence Surgical History No pertinent past surgical history Social History lives independently: Yes Smoking Status: Never smoker Smoking Status: Never smoker Substance Use Type: does not use Exam Narrative Exam Narrative: GENERAL: in no distress, not toxic not dyspneic HEAD: Normocephalic. EYES: Pupils equal round ENT: Mucous membranes moist. NECK: Trachea midline. CARDIOVASCULAR: Regular rate and rhythm without murmurs RESPIRATORY: Clear to auscultation. Breath sounds equal bilaterally. No wheezes, rales, or rhonchi. GASTROINTESTINAL: Abdomen soft, non-tender BACK: No flank tenderness. NEURO: AOx4. Clear speech no facial droop light touch intact bilateral face and hands with strong equal meeting manager. Steady self gait in hallway to the bathroom and back. No ataxia. SKIN: Warm and dry PSYCH: Not anxious, is cooperative Initial Vital Signs Initial Vital Signs: Vital Signs Temperature 97.9 F 06/16/22 08:26 Pulse Rate 114 H 06/16/22 08:26 Respiratory Rate 18 06/16/22 08:26 Blood Pressure 158/72 H 06/16/22 08:26 Pulse Oximetry 97 06/16/22 08:26 Oxygen Delivery Method Room Air 06/16/22 08:26 Course Orders Ordered: ED Orders 06/16/22 07:20 CMP [Comprehensive Metabolic Panel] Stat Vital Signs Vital signs: Vital Signs - 8 hr 06/16/22 08:26 Temperature 97.9 F Pulse Rate 114 H Respiratory Rate 18 Blood Pressure 158/72 H Pulse Oximetry 97 Oxygen Delivery Method Room Air MDM - Recheck/Abnormal Lab/Rx Lab Data 06/16/22 07:20 Labs: Lab Results 06/16/22 Range/Units 07:20 Sodium 138 (137-145) mmol/L Potassium 4.5 (3.4-5.1) mmol/L Chloride 106 (98-107) mmol/L Carbon Dioxide 23 (22-32) mmol/L BUN 14 (7-17) mg/dL Creatinine 0.71 (0.52-1.04) mg/dL Estimated GFR > 60 (>60) mL/min BUN/Creatinine Ratio 19.7 (6-22) Glucose 100 (70-100) mg/dL Calcium 9.7 (8.4-10.2) mg/dL Total Bilirubin 0.2 (0.2-1.3) mg/dL AST 43 H (14-36) IU/L ALT 82 H (<35) IU/L Alkaline Phosphatase 91 (38-126) U/L Total Protein 7.0 (6.3-8.2) g/dL Albumin 4.4 (3.5-5.0) g/dL Globulin 2.6 (1.7-4.1) g/dL Albumin/Globulin Ratio 1.7 (1.0-2.8) MDM Narrative Medical decision making narrative: Patient here for evaluation of migraine headache and laboratory studies. Primary care sent here for outpatient lithium levels. Blood was drawn with outpatient lab this morning. Gilead levels are pending. Patient states she was placed on current dose of lithium back in 2019 and has been doing very well. She missed her checkup for lithium levels due to work load and work hours and schedule. Denies any nausea or vomiting. No confusion no double vision. No urinary complaints or changes. Has been keeping well hydrated. No recent illness. Patient states her headaches were evaluated by Neurology 12 years ago but has not seen a neurologist since then. She is followed by her primary care for her migraine medications. She states her primary care is giving a referral for Neurology evaluation given her migraine medications and lithium that is provided by her psychiatrist. Patient in no distress. Her migraine headache is almost daily. It does interfere with her work schedule. However she states she works 12 hours a day 5 days a week. She also cares for her father that has stage IV lung cancer. She states she has very little time for herself. She states her migraine headache is the same pattern intensity and location as previous headaches After history and exam CMP ordered. Patient states she would like take her home migraine medication. MDM CC: Migraine headache Complicating co-morbidities: Patient on lithium Data collected from: Patient Medical records reviewed: No previous visits here for migraine headaches or lithium laboratory studies Differential considered: Includes but not limited to migraine headache/lithium toxicity Exam documented above, pertinent findings include: Clear speech steady self gait no ataxia Lab Test results independently reviewed as above. Pertinent findings: Gilead 1.0 sodium 138 BUN 14 creatinine 0.71 GFR greater than 60 Treatments: Patient took home migraine medication Re-evaluations: Reviewed lithium and chemistry results with patient. Patient headache is controlled. She took her own migraine medication. Return precautions reviewed with her. She will follow up with her primary care regarding neurology referral. Not toxic at discharge. Discussion: Appropriate for discharge home. Patient migraine headache is her typical migraine headache. Gilead levels have improved from 5 days ago it was 1.4. Today it is 1.0. Chemistries are reassuring as well. Return precautions reviewed with patient. Work note provided. She desires discharge home. Diagnosis: Migraine headache Discharge Plan Departure Patient Disposition: Home Clinical Impression: Migraines Instructions: DI for Migraine Activity Restrictions/Additional Instructions: Please see your family doctor within a week for re-evaluation and to follow up on your referral for Neurology Services regarding her migraine headaches. At this time do continue home medications. Return if worse if any questions or concerns. Work note has been provided for you. Please do try to get rest and will help prevent migraine headaches Prescriptions: No Action zolmitriptan [Zomig] 5 mg tablet See Rx Instructions PO .COMPLEX Qty: 30 3RF Rx Instructions: take 1 tab at onset of headache; if no relief, may repeat 1 tab after at least 2 hrs; max = 2 tabs/24 hrs PO metronidazole 0.75 % gel 1 applic topical BID Qty: 45 1RF Rx Instructions: Apply a thin film twice daily (AM and PM) to affected areas after washing. rizatriptan 10 mg tablet 10 mg PO .COMPLEX MDD 3 PRN (Reason: migraine headache) Qty: 30 1RF Rx Instructions: take 1 tab at onset of headache; if no relief may repeat 1 tab after at least 2 hrs; max = 3 tabs/24 hr PO 10 mg PRN albuterol sulfate 90 mcg/actuation HFA aerosol inhaler 2 puff inhalation Q4-6H PRN (Reason: shortness of breath or wheezing) Qty: 8.5 2RF methylphenidate HCl 27 mg tablet extended release 24hr 27 mg PO DAILY methylphenidate HCl 5 mg tablet 5 mg PO DAILY PRN nortriptyline 25 mg capsule 25 mg PO DAILY risperidone 2 mg tablet 6 mg PO DAILY etonogestrel-ethinyl estradiol [NuvaRing] 0.12-0.015 mg/24 hr ring 1 vag ring vaginal Q3W Qty: 3 4RF Rx Instructions: leave in place for 3 weeks of a 3-week cycle fluconazole [Diflucan] 150 mg tablet 150 mg PO Q3D Qty: 2 0RF Hold Instructions: RN to check with pt re: symptoms Rx Instructions: may repeat second dose 72 hrs after first dose if symptoms persist aripiprazole [Abilify] 5 mg tablet 10 mg PO DAILY lithium carbonate 600 mg capsule 1,200 mg PO BEDTIME lamotrigine 200 mg tablet 400 mg PO DAILY acetaminophen PO Maximum Daily Multivitamin 18-0.4 mg tablet PO dicyclomine 20 mg tablet 20 mg PO QID PRN (Reason: abdominal pain) Qty: 120 4RF metronidazole 500 mg tablet 500 mg PO BID Qty: 14 0RF fluconazole [Diflucan] 150 mg tablet 150 mg PO Q3D Qty: 2 0RF Rx Instructions: may repeat second dose 72 hrs after first dose if symptoms persist Referrals: Obinna Garza ARNP [Primary Care Provider] - Stand Alone Forms: Patient Portal/API, Work Release Note
[2022-06-16 09:11] LABS: Alanine Aminotransferase 82 IU/L (<35); Albumin 4.4 g/dL (3.5-5.0); Albumin Globulin Ratio 1.7 (1.0-2.8); Alkaline Phosphatase 91 U/L (38-126); Aspartate Aminotransferase 43 IU/L (14-36); BUN Creatinine Ratio 19.7 (6-22); Bilirubin Total 0.2 mg/dL (0.2-1.3); Blood Urea Nitrogen 14 mg/dL (7-17); Calcium 9.7 mg/dL (8.4-10.2); Carbon Dioxide 23 mmol/L (22-32); Chloride 106 mmol/L (98-107); Estimated Glomerular Filt Rate > 60 mL/min (>60); Globulin 2.6 g/dL (1.7-4.1); Glucose 100 mg/dL (70-100); HEMOLYSIS < 15 (0-50); Potassium 4.5 mmol/L (3.4-5.1); Sodium 138 mmol/L (137-145)
--- NOTE | 2022-06-16 09:11 | PC.NURSE ---
Pt had lithium drawn at [facility] prior to ED check-in, results are 1.0.
[2022-06-16 09:25] VITALS: PULSE 78; RESP 18; O2SAT 97
== END 2022-06-16 09:26 | disposition home or self-care (01) ==
PROVIDERS: Emergency Provider Emergency Medicine; Family Provider Registered Nurse Diabetes Educator; PCP Registered Nurse Diabetes Educator
DX: G43.909 Migraine, unspecified, not intractable, without status migrainosus (principal); F31.9 Bipolar disorder, unspecified; F43.10 Post-traumatic stress disorder, unspecified; F90.9 Attention-deficit hyperactivity disorder, unspecified type; G47.00 Insomnia, unspecified
CPT/HCPCS: 36415; 80053; 80178; 99281; 99283

== ENCOUNTER → 2022-08-05 17:52 | Outpatient (CLI) | payer OTHER, SELFPAY ==
[2022-08-05 19:41] LABS: COVID-19 CEPHEID 4-PLEX PCR Negative (Negative); Influenza A - CEPHEID Flu A NEGATIVE (NEGATIVE); Influenza B - CEPHEID Flu B NEGATIVE (NEGATIVE); Respiratory Syncytial Virus Negative (Negative)
== END ==
PROVIDERS: Family Provider Registered Nurse Diabetes Educator; PCP Registered Nurse Diabetes Educator; Visit Provider Student in an Organized Health Care Education/Training Program
DX: J02.9 Acute pharyngitis, unspecified (principal); J06.9 Acute upper respiratory infection, unspecified
CPT/HCPCS: 0241U; 87070

== ENCOUNTER → 2022-08-10 09:31 | Outpatient (CLI) | payer OTHER, SELFPAY ==
[2022-08-10 11:12] LABS: Lithium 0.9 mmol/L (0.6-1.2)
[2022-08-10 11:36] LABS: Vitamin D 25 Hydroxy (D3) 37.5 ng/mL (30.0-100.0)
== END ==
PROVIDERS: Family Provider Registered Nurse Diabetes Educator; PCP Registered Nurse Diabetes Educator; Referring Provider Psychiatry & Neurology Psychiatry; Visit Provider Psychiatry & Neurology Psychiatry
DX: F32.9 Major depressive disorder, single episode, unspecified (principal); F43.10 Post-traumatic stress disorder, unspecified; F90.9 Attention-deficit hyperactivity disorder, unspecified type; G47.00 Insomnia, unspecified; R53.83 Other fatigue
CPT/HCPCS: 36415; 80178; 82306

== ENCOUNTER → 2022-09-25 16:25 | Outpatient (CLI) | payer OTHER, SELFPAY ==
[2022-09-25 18:26] LABS: Urine N gonorrhoeae NOT DETECTED
[2022-09-25 18:47] LABS: Urine Chlamydia NOT DETECTED
[2022-09-26 08:09] LABS: HSV 2 IGG AB < 0.91 index (0.00-0.90); HSV1IGG < 0.91 index (0.00-0.90)
[2022-09-28 17:06] LABS: RPR Screen Non Reactive (Non Reactive)
[2022-09-28 18:30] LABS: HIV 1 & 2 Ab/Ag 4th Gen Combo NEGATIVE (NEGATIVE); Hep C Virus Ab w/Reflex Quant NEGATIVE s/c (NEGATIVE); Hepatitis B Surface Antigen NEGATIVE s/c (NEGATIVE)
== END ==
PROVIDERS: Family Provider Registered Nurse Diabetes Educator; PCP Registered Nurse Diabetes Educator; Referring Provider Registered Nurse Diabetes Educator; Visit Provider Registered Nurse Diabetes Educator
DX: Z11.3 Encounter for screening for infections with a predominantly sexual mode of transmission (principal); Z77.21 Contact with and (suspected) exposure to potentially hazardous body fluids
CPT/HCPCS: 36415; 86592; 86695; 86696; 86803; 87340; 87389; 87491; 87591

== ENCOUNTER → 2023-05-14 14:59 | Outpatient (CLI) | payer OTHER, SELFPAY ==
--- NOTE | 2023-05-14 15:00 | DI.MG.S_ITS ---
BILATERAL DIGITAL SCREENING MAMMOGRAM 3D/2D WITH CAD: 05/14/2023 CLINICAL: Routine screening. Family history of breast cancer. Comparison is made to exam dated: 01/24/2022 mammogram - [facility]. There are scattered areas of fibroglandular density in both breasts (category b / 25%-50% glandular tissue). Current study was also evaluated with a Computer Aided Detection (CAD) system. No significant masses, calcifications, or other findings are seen in either breast. There has been no significant interval change. IMPRESSION: NEGATIVE There is no mammographic evidence of malignancy. A 1 year screening mammogram is recommended. Based on the Tyrer Cuzick model (a risk assessment model) the patient's lifetime risk is 10.3% and her 10 year risk is 1.5%. According to the ACR, ACS, and NCCN guidelines, an annual breast MRI exam along with mammogram is recommended if the patient's lifetime risk is 20% or greater. This exam was interpreted at Station ID: [id number]. NOTE: For mammograms, a report in lay terms will be sent to the patient. Approximately 15% of breast malignancies will not be visualized mammographically. In the management of a palpable breast mass, a negative mammogram must not discourage biopsy of a clinically suspicious lesion. Electronically Signed By: Beena Ayala M.D., PH.D hussain/isaias:05/14/2023 22:41:28 letter sent: Normal Exam ACR BI-RADS Category 1: Negative [id number]
== END ==
PROVIDERS: Family Provider Registered Nurse Diabetes Educator; PCP Registered Nurse Diabetes Educator; Referring Provider Registered Nurse Diabetes Educator; Visit Provider Registered Nurse Diabetes Educator
DX: Z12.31 Encounter for screening mammogram for malignant neoplasm of breast (principal)
CPT/HCPCS: 77063; 77067

== ENCOUNTER → 2023-05-24 13:11 | Outpatient (CLI) | payer OTHER, SELFPAY ==
[2023-05-24 14:30] LABS: Hematocrit 40.1 % (36-46); Hemoglobin 13.7 g/dL (12.0-16.0); Mean Corpuscular HGB Conc 34.1 % (30-36); Mean Corpuscular Hemoglobin 29.8 PG (26-34); Mean Corpuscular Volume 87.2 fL (80-100); Platelet Count 273 X10^3/uL (150-400); Red Cell Distribution Width 13.1 % (11.6-14.8); White Blood Cell Count 10.8 X10^3/uL (4.5-11.0)
[2023-05-24 14:43] LABS: Alanine Aminotransferase 32 IU/L (<35); Albumin 4.6 g/dL (3.5-5.0); Albumin Globulin Ratio 1.4 (1.0-2.8); Alkaline Phosphatase 80 U/L (38-126); Aspartate Aminotransferase 34 IU/L (14-36); Bilirubin Total 0.4 mg/dL (0.2-1.3); Blood Urea Nitrogen 18 mg/dL (7-17); Calcium 9.7 mg/dL (8.4-10.2); Carbon Dioxide 20 mmol/L (22-32); Chloride 107 mmol/L (98-107); Estimated Glomerular Filt Rate > 60 mL/min (>60); Globulin 3.3 g/dL (1.7-4.1); Glucose 98 mg/dL (70-100); HEMOLYSIS 18 (0-50); Potassium 4.2 mmol/L (3.4-5.1); Sodium 140 mmol/L (137-145); Total Protein 7.9 g/dL (6.3-8.2)
[2023-05-24 15:07] LABS: Lithium 0.8 mmol/L (0.6-1.2)
[2023-05-24 15:40] LABS: TSH w/ Reflex to FT4 3.31 uIU/mL (0.47-4.68)
== END ==
PROVIDERS: Family Provider Registered Nurse Diabetes Educator; PCP Registered Nurse Diabetes Educator; Visit Provider Registered Nurse
DX: Z00.00 Encounter for general adult medical examination without abnormal findings (principal); Z79.899 Other long term (current) drug therapy; Z51.81 Encounter for therapeutic drug level monitoring; M85.80 Other specified disorders of bone density and structure, unspecified site; E78.5 Hyperlipidemia, unspecified
CPT/HCPCS: 36415; 80053; 80178; 84443; 85027

== ENCOUNTER → 2023-06-24 08:53 | Outpatient (CLI) | payer OTHER, SELFPAY ==
[2023-06-24 10:11] LABS: Add Manual Diff / Slide Review NO; Basophils Absolute Auto 100 /uL (0-100); Eosinophils Absolute Auto 300 /uL (0-450); Eosinophils Percent Auto 2.9 % (2-4); Hematocrit 39.1 % (36-46); Hemoglobin 13.4 g/dL (12.0-16.0); Lymphocytes Absolute Auto 3100 /uL (1100-4500); Lymphocytes Percent Auto 30.6 % (25-40); Mean Corpuscular HGB Conc 34.2 % (30-36); Mean Corpuscular Hemoglobin 29.5 PG (26-34); Mean Corpuscular Volume 86.4 fL (80-100); Monocytes Absolute Auto 600 /uL (0-900); Neutrophils Absolute Auto 6000 /uL (1500-7000); Neutrophils Percent Auto 59.5 % (50-75); Platelet Count 271 X10^3/uL (150-400); Red Blood Cell Count 4.53 X10^6/uL (4.0-5.2); Red Cell Distribution Width 13.1 % (11.6-14.8)
[2023-06-24 10:42] LABS: Cholesterol 197 mg/dL (140-199); HDL Cholesterol 47 mg/dL (40-60); LDL Cholesterol Calculated 106 mg/dL (<100); Triglycerides 218 mg/dL (35-150)
[2023-06-24 10:44] LABS: Alanine Aminotransferase 34 IU/L (<35); Albumin Globulin Ratio 1.3 (1.0-2.8); Alkaline Phosphatase 87 U/L (38-126); Aspartate Aminotransferase 25 IU/L (14-36); BUN Creatinine Ratio 18.1 (6-22); Bilirubin Total 0.5 mg/dL (0.2-1.3); Blood Urea Nitrogen 15 mg/dL (7-17); Calcium 9.8 mg/dL (8.4-10.2); Carbon Dioxide 23 mmol/L (22-32); Chloride 109 mmol/L (98-107); Estimated Glomerular Filt Rate > 60 mL/min (>60); Glucose 102 mg/dL (70-100); HEMOLYSIS < 15 (0-50); Potassium 4.5 mmol/L (3.4-5.1); Sodium 139 mmol/L (137-145)
[2023-06-24 11:12] LABS: Thyroid Stimulating Hormone 2.57 uIU/mL (0.47-4.68)
== END ==
LOC: LAB 08:55
PROVIDERS: Family Provider Registered Nurse Diabetes Educator; PCP Registered Nurse Diabetes Educator; Referring Provider Registered Nurse; Visit Provider Registered Nurse Diabetes Educator
DX: Z00.00 Encounter for general adult medical examination without abnormal findings (principal); Z79.899 Other long term (current) drug therapy; Z51.81 Encounter for therapeutic drug level monitoring; R53.83 Other fatigue; E78.5 Hyperlipidemia, unspecified; M85.80 Other specified disorders of bone density and structure, unspecified site
CPT/HCPCS: 36415; 80053; 80061; 80178; 82533; 83036; 84439; 84443; 85025

== ENCOUNTER → 2023-08-02 10:50 | Outpatient (CLI) | payer OTHER, SELFPAY ==
[2023-08-02 13:51] LABS: Urine N gonorrhoeae NOT DETECTED
[2023-08-02 13:52] LABS: Urine Chlamydia NOT DETECTED
[2023-08-02 16:36] LABS: HIV 1 & 2 Ab/Ag 4th Gen Combo NEGATIVE (NEGATIVE)
[2023-08-03 04:37] LABS: RPR Screen Non Reactive (Non Reactive)
[2023-08-03 06:30] LABS: HSV 2 IGG AB < 0.91 index (0.00-0.90); HSV1IGG < 0.91 index (0.00-0.90)
== END ==
PROVIDERS: Family Provider Registered Nurse Diabetes Educator; PCP Registered Nurse Diabetes Educator; Referring Provider Registered Nurse Diabetes Educator; Visit Provider Registered Nurse Diabetes Educator
DX: Z11.3 Encounter for screening for infections with a predominantly sexual mode of transmission (principal)
CPT/HCPCS: 36415; 86592; 86695; 86696; 87389; 87491; 87591

== ENCOUNTER → 2023-08-21 10:19 | Outpatient (CLI) | payer OTHER, SELFPAY ==
--- NOTE | 2023-08-21 10:30 | DI.US.S_ITS ---
PROCEDURE: US THYROID INDICATIONS: Thyroid/neck/cervical chain - R submental adenopathy/mass TECHNIQUE: Real-time scanning was performed of the thyroid gland, with image documentation. COMPARISON: None. FINDINGS: Thyroid: Right lobe measures 3.8 x 1.6 x 1.6 cm. Left lobe measures 3.6 x 1.5 x 1.4 cm. Isthmus is 0.3 cm thick. Echotexture is homogeneous. No thyroid nodules present. Small adjacent normal appearing lymph nodes noted IMPRESSION: Normal ultrasound of the thyroid 1. Dictated by: Pablo Vaca M.D. on 08/21/2023 at 11:25 Approved by: Pablo Vaca M.D. on 08/21/2023 at 11:28
== END ==
PROVIDERS: Family Provider Registered Nurse Diabetes Educator; PCP Registered Nurse Diabetes Educator; Referring Provider Registered Nurse Diabetes Educator; Visit Provider Registered Nurse Diabetes Educator
DX: R59.0 Localized enlarged lymph nodes (principal); R13.10 Dysphagia, unspecified
CPT/HCPCS: 76536

== ENCOUNTER → 2023-12-04 12:15 | Outpatient (CLI) | payer OTHER, SELFPAY ==
[2023-12-04 13:09] LABS: Lithium 0.8 mmol/L (0.6-1.2)
== END ==
LOC: LAB 12:18
PROVIDERS: Family Provider Registered Nurse Diabetes Educator; PCP Registered Nurse Diabetes Educator; Referring Provider Registered Nurse; Visit Provider Registered Nurse
DX: F91.9 Conduct disorder, unspecified (principal)
CPT/HCPCS: 36415; 80178

== ENCOUNTER → 2024-07-27 12:15 | Outpatient (CLI) | payer OTHER, SELFPAY ==
--- NOTE | 2024-07-27 12:16 | DI.MG.S_ITS ---
MM diagnostic mammo BI: 07/27/2024. BI-RADS: 1 CLINICAL: 43-year old female for bilateral diagnostic mammogram and right diagnostic breast ultrasound. Tyrer-Cuzick lifetime risk of 20.2%. Current reported family history of breast cancer: paternal grandmother and mother. The patient reports testing negative for BRCA gene mutation. The patient reports that the inferior right breast feels different from the left breast (3 months). Patient is unable to palpate a specific lump on today's exam. PRIOR EXAMS 05/14/2023, 01/24/2022. MAMMOGRAPHY TECHNIQUE: 2D and 3D (tomosynthesis) digital mammographic views obtained, with additional images as needed for full coverage. Current study was also evaluated with a Computer Aided Detection (CAD) system. DENSITY B. There are scattered areas of fibroglandular density. MAMMOGRAPHY FINDINGS Right: [place]: There is no suspicious mammographic finding to account for concern by the patient. No suspicious mass, asymmetry, microcalcification, or other abnormality seen. Bilateral: No suspicious mass, asymmetry, microcalcification, or other abnormality seen. No significant change from comparison. IMPRESSION: * No evidence of malignancy. RECOMMENDATIONS Right * Clinical follow-up is recommended, and further management of palpable abnormalities or other focal signs or symptoms should be based on the results of clinical evaluation. If palpable abnormality or other concerning symptom persists or progresses, further clinical evaluation should be considered. Bilateral * According to the Tyrer-Cuzick Risk Assessment Model, based on the information provided your patient has a greater than 20% lifetime risk for developing breast cancer. Consider supplemental screening with breast MRI and participation in a high risk screening program. * Annual screening mammography. OVERALL ASSESSMENT CATEGORY BI-RADS-1: Negative. The [employer] recommends annual screening mammography beginning at age 40 for women with average risk of breast cancer. ELECTRONICALLY SIGNED: Daniela Edwards M.D. on 07/27/2024 at 02:46:09 PM PT Interpreting Station ID: [id number]
--- NOTE | 2024-07-27 12:16 | DI.RAD.S_ITS ---
PROCEDURE: XR DEXA AXIAL SKELETON INDICATIONS: reeval osteopenia COMPARISON: None. FINDINGS: Lumbar Spine: Bone mineral density 0.94 g/cm2, T score not applicable Left Femoral Neck: Bone mineral density 0.801 g/cm2, T score not applicable Left Hip: Bone mineral density 0.954 g/cm2, T score not applicable Fracture Risk Calculation (when applicable): 10-year fracture risk of a major osteoporotic fracture 2 percent and of a hip fracture 0.1 percent. (T score greater or equal to -1.0 to: NORMAL) (T score from -1.1 to -2.4: OSTEOPENIA) (T score less than or equal to -2.5: OSTEOPOROSIS) IMPRESSION: T-scores for bone density evaluation not available. Follow-up guidelines as follows: Osteoporosis: Consider a repeat DEXA and Vertebral Fracture Assessment (VFA) exam in 2 years or sooner if medically necessary, to reassess this patient's status. Osteopenia: Consider a repeat DEXA in 2-3 years to reassess this patient's status, or if there is a new clinical indication. Normal: Consider a repeat DEXA in 5 years or sooner, or if there is a new clinical indication. All treatment decisions require clinical judgment and consideration of individual patient factors, including patient preferences, comorbidities, previous drug use, risk factors not captured in the FRAX model (e.g., frailty, falls, vitamin D deficiency, increased bone turnover, interval significant decline in bone density ) and possible under- or over-estimation of fracture risk by FRAX. In addition, the NOF Guide recommends that FDA-approved medical therapies be considered in postmenopausal women and men age >= 50 years with a: * Hip or vertebral (clinical or morphometric) fracture * T-score of <=-2.5 at the spine or hip * Ten-year fracture probability by FRAX of >= 3% for hip fracture or >=20% for major osteoporotic fracture. Dictated by: Bob Chaves M.D. on 07/27/2024 at 16:43 Approved by: Bob Chaves M.D. on 07/27/2024 at 16:45
--- NOTE | 2024-07-27 13:32 | DI.RAD.S_ITS ---
PROCEDURE: XR CHEST 2V INDICATIONS: cough TECHNIQUE: 2 views of the chest were acquired. COMPARISON: None. FINDINGS: Heart, mediastinum and pulmonary vascular: Heart is normal in size and configuration. Mediastinum is unremarkable. Pulmonary vascular is normal. Lungs: Clear Pleural spaces: Normal-no effusions or pneumothorax. Bones and soft tissues: Focal calcification expected location of the left rotator cuff insertion suggest calcific tendinitis. Mild degenerative disc disease seen throughout the thoracic spine IMPRESSION: No cardiopulmonary disease. Other chronic findings that as described Dictated by: Bossman Bell M.D. on 07/28/2024 at 12:25 Approved by: Bossman Bell M.D. on 07/28/2024 at 12:26
[2024-07-27 14:33] LABS: Hematocrit 38.6 % (36-46); Hemoglobin 13.1 g/dL (12.0-16.0); Mean Corpuscular HGB Conc 33.9 % (30-36); Mean Corpuscular Hemoglobin 29.5 PG (26-34); Mean Corpuscular Volume 87.2 fL (80-100); Platelet Count 274 X10^3/uL (150-400); Red Blood Cell Count 4.43 X10^6/uL (4.0-5.2); Red Cell Distribution Width 13.3 % (11.6-14.8); White Blood Cell Count 9.1 X10^3/uL (4.5-11.0)
[2024-07-27 15:23] LABS: TSH w/ Reflex to FT4 2.55 uIU/mL (0.47-4.68)
[2024-07-27 15:46] LABS: Urine N gonorrhoeae NOT DETECTED
[2024-07-27 16:03] LABS: Urine Chlamydia NOT DETECTED
[2024-07-27 21:05] LABS: Hepatitis B Surface Antigen NEGATIVE s/c (NEGATIVE)
[2024-07-27 21:06] LABS: Alanine Aminotransferase 57 IU/L (<35); Albumin 4.7 g/dL (3.5-5.0); Albumin Globulin Ratio 1.5 (1.0-2.8); Alkaline Phosphatase 83 U/L (38-126); Aspartate Aminotransferase 39 IU/L (14-36); BUN Creatinine Ratio 13.5 (6-22); Bilirubin Total 0.4 mg/dL (0.2-1.3); Blood Urea Nitrogen 12 mg/dL (7-17); Calcium 9.9 mg/dL (8.4-10.2); Carbon Dioxide 19 mmol/L (22-32); Chloride 107 mmol/L (98-107); Cholesterol 222 mg/dL (140-199); Estimated Glomerular Filt Rate > 60 mL/min (>60); Globulin 3.2 g/dL (1.7-4.1); Glucose 103 mg/dL (70-100); HDL Cholesterol 39 mg/dL (40-60); HEMOLYSIS < 15 (0-50); LDL Cholesterol Calculated 115 mg/dL (<100); Potassium 4.2 mmol/L (3.4-5.1); Sodium 140 mmol/L (137-145); Total Protein 7.9 g/dL (6.3-8.2); Triglycerides 338 mg/dL (35-150)
[2024-07-27 21:20] LABS: HIV 1 & 2 Ab/Ag 4th Gen Combo NEGATIVE (NEGATIVE); Hep C Virus Ab w/Reflex Quant NEGATIVE s/c (NEGATIVE)
[2024-07-27 21:22] LABS: Vitamin D 25 Hydroxy (D3) 32.1 ng/mL (30.0-100.0)
[2024-07-28 07:36] LABS: RPR Screen Non Reactive (Non Reactive)
== END ==
PROVIDERS: Family Provider Registered Nurse Diabetes Educator; PCP Registered Nurse Diabetes Educator; Referring Provider Registered Nurse Diabetes Educator; Visit Provider Registered Nurse Diabetes Educator
DX: Z12.39 Encounter for other screening for malignant neoplasm of breast (principal); Z00.00 Encounter for general adult medical examination without abnormal findings; N64.4 Mastodynia; N63.10 Unspecified lump in the right breast, unspecified quadrant; M85.80 Other specified disorders of bone density and structure, unspecified site; M51.34 Other intervertebral disc degeneration, thoracic region; R73.01 Impaired fasting glucose; E78.5 Hyperlipidemia, unspecified; R05.3 Chronic cough; F17.200 Nicotine dependence, unspecified, uncomplicated; Z72.51 High risk heterosexual behavior; Z80.3 Family history of malignant neoplasm of breast
CPT/HCPCS: 36415; 71046; 77066; 77080; 80053; 80061; 82306; 83036; 84443; 85027; 86592; 86803; 87340; 87389; 87491; 87591; G0279

== ENCOUNTER 2024-08-31 12:01 | Day surgery (SDC) | payer OTHER, SELFPAY ==
[2024-08-22 11:12] VITALS: BMI 36.0
[2024-08-31] VITALS (7 sets, daily range): BP systolic 117–131; BP diastolic 60–76; PULSE 93–111; RESP 16–24; TEMP 36.2–36.9; O2SAT 97–100; BMI 36.4
--- NOTE | 2024-08-31 | PATH_ITS ---
[facility] Accession Number: [id number] No. of containers..01 Tissue . 01 Material submitted: . fallopian tube - BILATERAL FALLOPIAN TUBES . 01 Diagnosis: BILATERAL FALLOPIAN TUBES, BILATERAL LAPAROSCOPIC SALPINGECTOMY: Fallopian tubes x2, complete cross-sections, with benign paratubal cysts (3 mm); negative for significant atypia. MRV 09/05/2024 1239 Local . 01 Electronically signed: . Kim Dumont MD, Pathologist NPI- [id number] . 01 Gross description: . Received in formalin with two identifiers and bilateral fallopian tubes, are two unoriented fimbriated fallopian tubes, 8.6 cm in length by 0.7 cm in diameter and 7.7 cm in length by 0.5 cm in diameter. Both tubes have baker smooth serosa with cysts up to 0.3 cm in greatest dimension filled with cloudy serous fluid. The lumens are stellate and unremarkable. Swatch Checker sections are submitted as follows: . A1: Longer fallopian tube. A2: [place] fallopian tube. ([id number]) /MRV 09/01/2024 1409 Local . 01 Pathologist provided ICD-10: Z30.2 . 01 CPT . 136708 Specimen Comment: A courtesy copy of this report has been sent to [phone] Performed at: [address] [address], [place], [place] [id number] MD Paul Graff MD Phone: [phone]
[2024-08-31] MEDS: LACTATED RINGERS 1,000 ML 42 ML IV (12:39)
[2024-08-31] MEDS: ACETAMINOPHEN 325 MG TABLET 975 MG PO (12:41)
[2024-08-31] MEDS: SCOPOLAMINE 1 PATCH TOP (12:41)
--- NOTE | 2024-08-31 13:11 | PM.PREOP ---
Pre-operative Note COVID-19 COVID-19 status: Not tested Interval Note History & Physical reviewed/Exam performed by Physician: Yes Changes to H&P: No
[2024-08-31] MEDS: BUPIVACAINE 0.5% W/ EPI (PF) 30 ML VIAL INJ (14:25)
--- NOTE | 2024-08-31 15:07 | P.OP_ITS ---
Operative Date/Time/Diagnoses Date of procedure: 08/31/24 Time of procedure: 14:00 Pre-op diagnosis: Request for sterilization Post-op diagnosis: same Procedure & Clinicians Procedure: Procedures Operation Date: 08/31/24 13:15 Actual Procedure Side Surgeon p Laparoscopic Salpingectomy bilateral Bilateral Jesus Hollins MD Indications: Nikia is a 43-year-old nulligravida who presents today to discuss possible sterilization. She is very concerned about possible Federal Ban on services and wants to do everything possible to avoid becoming unintentionally. She currently uses Nexplanon for contraception and wishes to retain her Nexplanon because she is either amenorrheic or has very light periods. Patient is aware that sterilization is a procedure which result in permanently and irreversibly being able to bear children without benefit of assisted reproductive technology. Patient reassured that ovum harvest is still possible following bilateral salpingectomy but her age may significantly impact over retrieval even with optimized ovarian stimulation. Patient is sexually a ctive and has always had normal Paps. Patient counseled regarding alternatives, risks, benefits, and potential complications associated with laparoscopic bilateral salpingectomy. She was also counseled that this is a procedure which will result in her being permanently and irreversibly unable to bear children without benefit of assisted reproductive technology such as in vitro fertilization. She further understands that there is a small ([phone]) risk of failure to prevent which would likely result in ectopic gestation. With the understanding of the above, the patient wishes to proceed with scheduling laparoscopic bilateral salpingectomy. She presents today for her scheduled surgery. Surgeon: Jesus Hollins Anesthesia Type: General Operative Notes Findings: Normal pelvis with small normally shaped uterus, normal fallopian tubes bilaterally, and normal ovaries present bilaterally. There was no evidence of endometriosis or scarring in the anterior or posterior cul-de-sacs. The remainder of the pelvis and abdomen were normal to laparoscopic evaluation. Closure Type: primary Specimen(s): left tube and right tube Estimated blood loss (mL): 5 Blood products transfused: none Procedure in detail: With the patient under satisfactory general anesthesia in the modified dorsal lithotomy position, the perineum, vagina, and abdomen were prepped and draped for IUD removal and laparoscopic bilateral salpingectomy. A pre-surgical safety time-out was then taken in accordance with [facility] OR protocols. The umbilicus was then infiltrated with 0.5% Marcaine with epinephrine and 1 cm vertical incision was made in the inferior aspect of the umbilicus. Veress needle was used to insufflate the abdomen with carbon dioxide and once appropriately insufflated, 5 mm bladeless trocar and sleeve were inserted through the incision. Proper placement of the sleeve was confirmed with laparoscopic visualization and insufflation of the abdomen continued. A 2nd and 3rd 5 mm laparoscopic port were placed in the right and left mid quadrants using a similar technique and using a 3 puncture technique, the abdomen and pelvis were visualized with the findings as noted above. The distal aspect of the left fallopian tube was then grasped with a grasping forceps and using a Power Seal device, fimbria ovarica was coagulated and divided the dissection using the Power Seal continuing across the mesosalpinx to the cornua where the base fallopian tube was coagulated and divided. The left fallopian tube was then removed through one of the ports and submitted pathologic specimen. Attention was then turned to the right adnexa with distal tube grasped with a grasping forcep. The Power Seal device was then used to coagulate fimbria ovarica and the dissection was carried across the mesosalpinx to the cornua where the fallopian tube on the right side was amputated at the cornua following coagulation proximal tube the Power Seal device. Pelvis was inspected and there were no abnormalities noted following bilateral salpingectomy. The pneumoperitoneum was then vented and the ports removed from the abdominal wall. Port incisions were then closed with 4-0 Monocryl using inverted interrupted stitches and skin glue was applied. Appropriate dressings were then applied, patient was awakened, and transferred to the PACU for a period of observation after having tolerated the procedure well. Complications: none Post-operative Condition: stable Disposition: PACU Plan for aftercare: Routine postoperative care with follow-up planned for 2 weeks after surgery
[2024-08-31] MEDS: OXYCODONE IR 5 MG TABLET PO (15:46)
== END 2024-08-31 16:17 | disposition home or self-care (01) ==
PROVIDERS: Family Provider Registered Nurse Diabetes Educator; PCP Registered Nurse Diabetes Educator; Referring Provider Obstetrics & Gynecology; Visit Provider Obstetrics & Gynecology
PROC: 0UT74ZZ Resection of Bilateral Fallopian Tubes, Percutaneous Endoscopic Approach (ICD-10-PCS; CPT 58661; principal; 2024-08-31 13:15)
DX: Z30.2 Encounter for sterilization (principal)
CPT/HCPCS: 58661; 81025; J0330; J1100; J1885; J2250; J2405; J2704; J3010; J3490

== ENCOUNTER → 2024-12-19 12:36 | Outpatient (CLI) | payer OTHER, SELFPAY ==
--- NOTE | 2024-12-19 12:41 | DI.RAD.S_ITS ---
PROCEDURE: XR CERVICAL SPINE 2V OR 3V INDICATIONS: eval chronic neck pain TECHNIQUE: Three views of the cervical spine were acquired. COMPARISON: None. FINDINGS: Cervical spine curvature and alignment: Normal. Bones: There are no osseous abnormalities. Disc spaces: Normal in height without significant degeneration. Soft tissues: No soft tissue swelling, calcification or mass. IMPRESSION: Normal cervical spine. Dictated by: Bossman Bell M.D. on 12/20/2024 at 11:43 Approved by: Bossman Bell M.D. on 12/20/2024 at 11:44
== END ==
LOC: RAD 12:41
PROVIDERS: PCP Registered Nurse Diabetes Educator; Referring Provider Registered Nurse Diabetes Educator; Visit Provider Registered Nurse Diabetes Educator
DX: M54.2 Cervicalgia (principal); G89.29 Other chronic pain
CPT/HCPCS: 72040

== ENCOUNTER → 2024-12-22 15:42 | Outpatient (CLI) | payer OTHER, SELFPAY ==
[2024-12-22 18:24] LABS: Alanine Aminotransferase 40 IU/L (<35); Albumin 4.7 g/dL (3.5-5.0); Albumin Globulin Ratio 1.8 (1.0-2.8); Alkaline Phosphatase 96 U/L (38-126); Globulin 2.6 g/dL (1.7-4.1); HEMOLYSIS < 15 (0-50); Total Protein 7.3 g/dL (6.3-8.2)
== END ==
PROVIDERS: PCP Registered Nurse Diabetes Educator; Referring Provider Registered Nurse Diabetes Educator; Visit Provider Registered Nurse Diabetes Educator
DX: R74.8 Abnormal levels of other serum enzymes (principal)
CPT/HCPCS: 36415; 80076

== ENCOUNTER → 2025-01-01 11:55 | Outpatient (CLI) | payer OTHER, SELFPAY ==
--- NOTE | 2025-01-01 11:56 | DI.US.S_ITS ---
PROCEDURE: US ABDOMEN LIMITED INDICATIONS: eval elevated liver enzymes TECHNIQUE: Real-time scanning was performed of the abdominal and retroperitoneal organs, with image documentation. COMPARISON: None. FINDINGS: Liver: Liver is normal in size. Increased liver parenchymal echotexture is seen. No discrete hepatic lesion. Gallbladder: No gallstones. No gallbladder wall thickening or pericholecystic fluid. No sonographic Cherry sign. Biliary ducts: Intrahepatic bile ducts are non-dilated. Extrahepatic bile duct caliber measures 5.3 mm. Normal is 6-7 mm or less in diameter, or 10 mm or less post-cholecystectomy. Pancreas: Visualized portions of the pancreas are sonographically normal. Miscellaneous: No free abdominal fluid. IMPRESSION: 1. Hepatic steatosis, no discrete hepatic lesion. 2. Normal appearing gallbladder. No biliary ductal dilatation. No abnormality is seen in the pancreas. Dictated by: Carl Madera M.D. on 01/01/2025 at 14:19 Approved by: Carl Madera M.D. on 01/01/2025 at 14:20
== END ==
PROVIDERS: PCP Registered Nurse Diabetes Educator; Referring Provider Registered Nurse Diabetes Educator; Visit Provider Registered Nurse Diabetes Educator
DX: K76.0 Fatty (change of) liver, not elsewhere classified (principal); R74.8 Abnormal levels of other serum enzymes
CPT/HCPCS: 76705

== ENCOUNTER → 2025-03-02 10:25 | Outpatient (CLI) | payer OTHER, SELFPAY ==
[2025-03-03 10:13] LABS: Insulin 1 hour 116.0 uIU/mL (0.0-163.5); Insulin 2 hour 28.1 uIU/mL (0.0-145.4); Insulin 90 minutes 75.6 uIU/mL (Not Estab.); Insulin, Fasting 28.7 uIU/mL (2.6-24.9)
== END ==
PROVIDERS: PCP Registered Nurse Diabetes Educator; Referring Provider Registered Nurse Diabetes Educator; Visit Provider Registered Nurse Diabetes Educator
DX: R73.01 Impaired fasting glucose (principal); K76.0 Fatty (change of) liver, not elsewhere classified
CPT/HCPCS: 36415; 82951; 82952; 83525

== ENCOUNTER → 2025-03-29 10:56 | Outpatient (CLI) | payer OTHER, SELFPAY ==
--- NOTE | 2025-03-29 10:58 | DI.MRI.S_ITS ---
MR breast BI wo/w con: 03/29/2025. BI-RADS: 4 CLINICAL: 44-year old female for high-risk screening breast MRI. Current reported family history of breast cancer: paternal grandmother and mother. The patient reports testing negative for BRCA gene mutation. PRIOR EXAMS 07/27/2024, 05/14/2023, 01/24/2022. MRI TECHNIQUE Bilateral breast MRI was performed on a 1.5 Johanny magnet using a dedicated breast coil with mild compression. Axial T1 and T2 STIR sequences were obtained. Dynamic contrast enhanced VIBRANT fat-suppressed sequences were obtained. Delayed sagittal high resolution or sagittal reconstructed isotropic sequence was also obtained. Subtraction images and maximum intensity projection images were obtained. The study was evaluated using [employer] software. IV Contrast: 20 ml ProHance. FIBROGLANDULAR TISSUE Bilateral: B. Scattered fibroglandular tissue. BACKGROUND PARENCHYMAL ENHANCEMENT Bilateral: Mild symmetrical background parenchymal enhancement. BREAST FINDINGS Right: Upper Inner at 2:00, 4 cm from nipple, (Axial S:6/I:86), Middle depth, measuring 0.9 x 0.8 x 0.8cm: There is clustered-ring non-mass enhancement in focal distribution with kinetic enhancement curve showing medium initial phase, persistent pattern on delayed phase. On non-contrast sequences this non-mass enhancement shows intermediate signal intensity on STIR/T2-weighted sequences. Right: at 9:00, 3 cm from nipple, (Axial S:6/I:62), measuring 0.8 x 0.4 x 0.5cm: There is homogeneous non-mass enhancement in focal distribution with kinetic enhancement curve showing medium initial phase, persistent pattern on delayed phase. On non- contrast sequences this non-mass enhancement shows high signal intensity on STIR/T2- weighted sequences. Right: There are no abnormal axillary or internal mammary lymph nodes. Left: There is no suspicious mass or non-mass enhancement. There are no abnormal axillary or internal mammary lymph nodes. IMPRESSION: Right (Non-Mass): Upper Inner at 2:00, 4 cm from nipple, (Axial S:6/I:86), Middle depth, measuring 0.9 x 0.8 x 0.8cm * Suspicious findings with likelihood of malignancy. Right (Non-Mass): at 9:00, 3 cm from nipple, (Axial S:6/I:62), measuring 0.8 x 0.4 x 0.5cm * Probably Benign. Left * No evidence of malignancy. RECOMMENDATIONS Right: Upper Inner at 2:00, 4 cm from nipple, Middle depth * MRI-guided biopsy for further evaluation. Right: at 9:00, 3 cm from nipple * Further management pending the biopsy results. If benign, recommend short interval MRI follow up in 6 months. COMMENTS: The imaging literature indicates that a negative contrast breast MRI examination has a high sensitivity and a moderate specificity for detecting and excluding invasive carcinomas to a detection threshold of 3-5 mm; nonetheless, appropriate clinical and mammographic follow-up are recommended. MRI is not sensitive for detecting DCIS (ductal carcinoma in situ) and may not detect large invasive neoplasms that show only minimal enhancement such as mucinous carcinoma. If there are suspicious calcifications or clinically worrisome palpable masses, then biopsy should still be considered. Invasive neoplasms can be hidden by co-existent and benign enhancement caused by mastitis, hormone therapy effects, radiation therapy, , and recent biopsy or surgery. False positive examinations can occur in a number of circumstances, including breasts that have recently been subject to invasive procedures and those that contain atypical ductal hyperplasia, hormonally stimulated glandular tissue, fat necrosis, or radial scars. OVERALL ASSESSMENT CATEGORY BI-RADS-4: Suspicious. ELECTRONICALLY SIGNED: Daniela Edwards M.D. on 04/02/2025 at 11:07:46 PM PT Interpreting Station ID: [id number]
== END ==
LOC: MRI 10:57
PROVIDERS: PCP Registered Nurse Diabetes Educator; Referring Provider Registered Nurse Diabetes Educator; Visit Provider Registered Nurse Diabetes Educator
DX: Z12.39 Encounter for other screening for malignant neoplasm of breast (principal); N64.89 Other specified disorders of breast; Z91.89 Other specified personal risk factors, not elsewhere classified; Z80.3 Family history of malignant neoplasm of breast
CPT/HCPCS: 77049; A9579